=== PATIENT | female | born 1955 | race Caucasian/White ===

== ENCOUNTER 2024-04-14 13:27 | Emergency (ER) | payer OTHER ==
--- NOTE | 2024-04-14 14:08 | RAD REPORT ---
EXAM: CT PELVIS WITHOUT CONTRAST [facility] Bed Name: 15 COMPARISON: None TECHNIQUE: Multiple contiguous axial images were obtained and a CT of the pelvis with IV contrast. Sa gittal and coronal reformats were performed. One or more of the following dose reduction techniques were used: Automated exposure control, adjustment of the mA and/or kV according to patient size, and/ or iterative reconstruction. FINDINGS: No pelvic fractures are seen. No fracture of either proximal femur is seen. Mild degenerati ve change in both hips. Mild free fluid in the pelvis. Feeding tube noted.. Soft tissue swelling is seen right medial buttock region. Focal soft tissue hematoma may be present i n the region measuring 5 cm. IMPRESSION: No acute fracture seen.
--- NOTE | 2024-04-14 14:21 | ER ---
Nurse's Notes [facility] Name: Dunia Robles Age: 68 yrs Sex: Female : 1955 Arrival Date: 04/14/2024 Time: 13:27 Bed 15 Private MD: Diagnosis: Buttock Hematoma Presentation: 04/14 13:32 Chief complaint: EMS states: they were toned out to [facility] for a fall yesterday and kc6 today, pt reporting right hip pain upon palpation. Coronavirus screen: At this time, the client does not indicate any symptoms associated with coronavirus-19. Ebola Screen: No symptoms or risks identified at this time. Initial Sepsis Screen: Does the patient meet any 2 criteria? No. Patient's initial sepsis screen is negative. Does the patient have a suspected source of infection? No. Patient's initial sepsis screen is negative. Risk Assessment: Do you want to hurt yourself or someone else? Patient reports no desire to harm self or others. Onset of symptoms was April 14, 2024. 13:32 Method Of Arrival: EMS: [facility] 13:32 Acuity: SANTY 4 kc6 Historical: - Allergies: 13:33 No Known Allergies; kc6 - PMHx: 13:33 Chronic obstructive lung disease; Hypertensive disorder; Cerebrovascular accident; kc6 hyperlipidemia; Anemia; Gastroesophageal reflux disease; - Immunization history:: Adult Immunizations up to date. - Infectious Disease History:: Denies. - Social history:: Smoking status: Patient denies any tobacco usage or history of. Screenin:35 [facility] ED Fall Risk Assessment (Adult) History of falling in the last 3 months, kc including since admission Yes- fall prone (multiple falls) (3 pts) Confusion or Disorientation No (0 pts) Intoxicated or Sedated No (0 pts) Impaired Gait Yes (1 pt) Mobility Assist Device Used Yes (1 pt) Altered Elimination No (0 pt) Score/Fall Risk Level 3 or more points = High Risk Oriented to surroundings, Maintained a safe environment, Educated pt \T\ family on fall prevention, incl call for assistance when getting out of bed. Abuse screen: Denies threats or abuse. Denies injuries from another. Nutritional screening: No deficits noted. Tuberculosis screening: No symptoms or risk factors identified. Assessment: 13:36 General: Appears in no apparent distress. comfortable, well groomed, well developed, kc6 Behavior is calm, cooperative, appropriate for age. Pain: Complains of pain in right hip. Neuro: Level of Consciousness is awake, alert, obeys commands, Oriented to person, place, time, situation, Appropriate for age. Cardiovascular: Capillary refill < 3 seconds. Respiratory: Airway is patent Trachea midline Respiratory effort is even, unlabored, Respiratory pattern is regular, symmetrical. GI: No signs and/or symptoms were reported involving the gastrointestinal system. : No signs and/or symptoms were reported regarding the genitourinary system. EENT: No signs and/or symptoms were reported regarding the EENT system. Derm: No signs and/or symptoms reported regarding the dermatologic system. Skin is intact, is healthy with good turgor, Skin is pink, warm \T\ dry. Musculoskeletal: No signs and/or symptoms reported regarding the musculoskeletal system. Capillary refill < 3 seconds. 14:10 Reassessment: Patient appears in no apparent distress at this time. No changes from kc6 previously documented assessment. Patient and/or family updated on plan of care and expected duration. Pain level reassessed. Patient is alert, oriented x 3, equal unlabored respirations, skin warm/dry/pink. 14:25 Reassessment: nurse to nurse report given to [facility]. state they will arrange [facility] transport back to the facility with [facility] and call back with [facility]. Vital Signs: 13:32 BP 105 / 84; Pulse 65; Resp 16 S; Temp 97.3(O); Pulse Ox 100% on R/A; Weight 52.62 kg kc6 (M); ED Course: 13:30 Patient arrived in ED. kc6 13:33 Triage completed. kc6 13:33 Arm band placed on. kc6 13:34 Clark Rodriguez MD is Attending Physician. ec2 13:36 Patient has correct armband on for positive identification. Bed in low position. Call kc light in reach. Side rails up X2. Pulse ox on. NIBP on. Door closed. Noise minimized. Lights dimmed. Warm blanket given. Pillow given. 13:36 Patient maintains SpO2 saturation greater than 95% on room air. kc6 13:37 Shahrzad Camara RN is Primary Nurse. kc6 13:58 CT Pelvis wo Cont In Process Unspecified. EDMS 14:58 No provider procedures requiring assistance completed. Patient did not have IV access kc6 during this emergency room visit. Administered Medications: No medications were administered Medication: 14:58 VIS not applicable for this client. kc6 Outcome: 14:20 Discharge ordered by . ec2 14:58 Discharged to [facility]. kc6 14:58 Condition: good 14:58 Discharge instructions given to patient, EMS, Instructed on discharge instructions, follow up and referral plans. Demonstrated understanding of instructions, follow-up care, 14:58 Patient left the ED. kc6 Signatures: Dispatcher [employer] Shahrzad Carter RN RN kc6 Clark Rodriguez MD MD ec2
--- NOTE | 2024-04-14 14:21 | EDPHYS ---
Physician Documentation [facility] Name: Dunia Robles Age: 68 yrs Sex: Female : 1955 Arrival Date: 04/14/2024 Time: 13:27 Bed 15 Private MD: ED Physician Clark Rodriguez HPI: 04/14 13:36 This 68 yrs old Female presents to ER via EMS with complaints of Hip Pain, ec2 Fall Injury. 13:36 Patient arrives today after head sustaining a fall injury yesterday. No LOC, no head or ec2 neck pain, complaining of right hip pain. Had outpatient x-rays that showed no acute pathology.. Historical: - Allergies: 13:33 No Known Allergies; kc6 - PMHx: 13:33 Chronic obstructive lung disease; Hypertensive disorder; Cerebrovascular accident; kc6 hyperlipidemia; Anemia; Gastroesophageal reflux disease; - Immunization history:: Adult Immunizations up to date. - Infectious Disease History:: Denies. - Social history:: Smoking status: Patient denies any tobacco usage or history of. ROS: 13:36 Constitutional: as per hpi ec2 Exam: 13:36 Constitutional: GEN: NAD Head: atraumatic Eyes: EOMI Ears: External ears are ec2 normal. CV: regular rate LUNGS: no respiratory distress ABD: non-distended SKIN: no evidence of rashes MSK: Right hip with TTP, no deformities, intact distal neurovascular status noted. No C/T/L spine deformities appreciated. Vital Signs: 13:32 BP 105 / 84; Pulse 65; Resp 16 S; Temp 97.3(O); Pulse Ox 100% on R/A; Weight 52.62 kg kc6 (M); MDM: 13:36 Data reviewed: vital signs. ED course: Patient arrives today for evaluation of right ec2 hip pain. Examination remarkable for hip findings as above. Will obtain CT of the pelvis. Differential includes bony fx, contusion. . 14:20 ED course: CT imaging shows hematoma of the buttock region, no fracture. Will discharge ec2 home. Return precautions given. 14:20 Patient medically screened. ec2 04/14 13:35 Order name: CT Pelvis wo Cont; Complete Time: 14:19 ec2 Administered Medications: No medications were administered Disposition Summary: 04/14/24 14:20 Discharge Ordered Notes: Location: Home ec2 Condition: Stable ec2 Diagnosis - Buttock Hematoma ec2 Followup: ec2 - With: Private Physician - When: - Reason: Re-evaluation by your physician Discharge Instructions: - Discharge Summary Sheet ec2 - Hematoma, [id number] ec2 Forms: - Medication Reconciliation Form ec2 - Antibiotic Education ec2 - Prescription Opioid Use ec2 - Patient Portal Instructions ec2 - Leadership Thank You Letter ec2 Signatures: Dispatcher [employer] Shahrzad Carter RN RN kc6 Clark Rodriguez MD MD ec2
[2024-04-14 17:48] VITALS: BP 105/84; TEMP 97.3; O2SAT 100
== END 2024-04-14 14:58 | disposition home or self-care (01) ==
LOC: ER 13:27
DX: S30.0XXA Contusion of lower back and pelvis, initial encounter (principal)
CPT/HCPCS: 72192

== ENCOUNTER 2024-08-14 19:47 | Emergency (ER) | payer OTHER ==
--- OUTSIDE RECORDS SUMMARY | 2024-08-14 19:50 | XMS REPORT | Continuity of Care Document ---
Author Name Unknown Address [address] [facility] [address] [place], [place] [id number] [place] [address] thconnect Address [address] [facility] [address] [place] [address] Care Team Providers Care Undercover Agent Name Role Phone MASSIMO RODGERS Attending Clinician Unavailab bernardo FLORENTINO_ROLA_Jeff_J Attending Clinician Unavailable MASON NEFF Attending Clinician Unavailable MISHEL_ROLA_Jeff_J Admitting Clinician Unavailable Payers Payer Name Policy Type Policy Number Effective Date Expirati on Date Source [facility] MEDICAID [facility] [id number] 2021 00:00:00 2021 00:00:00 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 Dependence on Wheel Chair Problem Active 2-02 00:00: 00 [facility] Lives in senior living Lives in Longterm Problem Active 2-02 00:00: 00 [facility] Palliative care Palliative Care Problem Active 2-02 00:00: 00 [facility] At high risk for fall At High Risk for Fall Problem Active 2-02 00:00: 00 [facility] Vascular dementia Vascular Dementia Problem Active 1-18 00:00: 00 [facility] Epilepsy Epilepsy Problem Active 1-18 00:00: 00 [facility] Tobacco dependence caused by cigarettes Tobacco Dependence Caused by Cigarettes Problem Active 1-18 00:00: 00 [facility] Simple chronic bronchitis Simple Chronic Bronchitis Problem Active 2023-07 0-28 00:00: 00 [facility] Spastic hemiplegia of right dominant side Spastic Hemiplegia of Right Dominant Side Problem Active 8-23 00:00: 00 [facility] Seizure disorder Seizure Disorder Problem Active 8-15 00:00: 00 [facility] Mononeurop athy of upper limb Mononeurop athy of Upper Limb Problem Active 617 00:00: 00 [facility] Mild protein-ca pennie malnutriti on (weight for age 75-89 percent of standard) Mild Protein-ca pennie Malnutriti on (Weight for Age 75-89 Percent of Standard) Problem Active 617 00:00: 00 [facility] Contractur e of joint of right hand Contractur e of Joint of Right Hand Problem Active 523 00:00: 00 [facility] Gastroesop hageal reflux disease Gastroesop hageal Reflux Disease Problem Active 4-22 00:00: 00 [facility] Chronic kidney disease stage 2 Chronic Kidney Disease Stage 2 Problem Active 2-25 00:00: 00 [facility] Macrocytic anemia Macrocytic Anemia Problem Active 2022-07 2 00:00: 00 [facility] Hypertensi ve heart AND renal disease Hypertensi ve Heart and Renal Disease Problem Active 2022-07 2 00:00: 00 [facility] Seen in senior living Seen in Longterm Problem Active 2022-07 2- 00:00: 00 [facility] Osteoarthr itis Osteoarthr itis Problem Active 2022-07 2-06 00:00: 00 [facility] Secondary immune deficiency disorder Secondary Immune Deficiency Disorder Problem Active 2022-07 2-04 00:00: 00 [facility] Carotid artery stenosis Carotid Artery Stenosis Problem Active 2022-07 2-04 00:00: 00 [facility] Atheroscle rosis of aorta Atheroscle rosis of Aorta Problem Active 2022-07 2-04 00:00: 00 [facility] Peripheral vascular disease Peripheral Vascular Disease Problem Active 2022-07 2-04 00:00: 00 [facility] Nodule of lung Nodule of Lung Problem Active 2022-07 2-04 00:00: 00 [facility] Double incontinen ce Double Incontinen ce Problem Active 2022-07 2-04 00:00: 00 [facility] Hypercoagu lability state Hypercoagu lability State Problem Active 2022-07 00:00: 00 [facility] Cerebrovas cular disease Cerebrovas cular Disease Problem Active 2022-07 00:00: 00 [facility] 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 cular Disease Problem Active 2022-07 00:00: 00 [facility] 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 Dysphagia as a Late Effect of Cerebrovas cular Accident Problem Active 2022-07 00:00: 00 [facility] Chronic obstructiv e pulmonary disease Chronic Obstructiv e Pulmonary Disease Problem Active 2022-07 00:00: 00 [facility] Functional gait abnormalit y Functional Gait Abnormalit y Problem Active 2022-07 00:00: 00 [facility] Gastrostom y present Gastrostom y Present Problem Active 2022-07 00:00: 00 [facility] Need for personal care assistance Need for Personal Care Assistance Problem Active 2022-07 00:00: 00 [facility] Social History Smoking Status Start Date Stop Date Source Current Some Day Smoker [facility] Medications Ordered Medication Name Filled Medication Name Start Date Stop Date Current Medication? Ordering Clinician Indication Dosage Frequency Signature (SIG) Comments Components Source lisinopril 2.5 mg tablet Take 1 tablet every day by oral route. lisinopril 2.5 mg tablet Take 1 tablet every day by oral route. 01-01 00:00: 00 No 1 Q1D lisinopril 2.5 mg tablet Take 1 tablet every day by oral route. [facility] amlodipine 10 mg tablet Take 1 tablet every day by oral route. amlodipine 10 mg tablet Take 1 tablet every day by oral route. No 1 Q1D amlodipine 10 mg tablet Take 1 tablet every day by oral route. [facility] aspirin 81 mg tablet,scott yed release Take 1 tablet every day by oral route. aspirin 81 mg tablet,scott yed release Take 1 tablet every day by oral route. No 1 Q1D aspirin 81 mg tablet,del ayed release Take 1 tablet every day by oral route. [facility] atorvastati n 80 mg tablet Take 1 tablet every day by oral route. atorvastati n 80 mg tablet Take 1 tablet every day by oral route. No atorvastat in 80 mg tablet Take 1 tablet every day by oral route. [facility] budesonide 0.5 mg/2 mL suspension for nebulizatio n Inhale 2 mL twice a day by nebulizatio n route for 30 days. budesonide 0.5 mg/2 mL suspension for nebulizatio n Inhale 2 mL twice a day by nebulizatio n route for 30 days. No budesonide 0.5 mg/2 mL suspension for nebulizati on Inhale 2 mL twice a day by nebulizati on route for 30 days. [facility] Combivent Respimat 20 mcg-100 mcg/actuati on solution for inhalation Combivent Respimat 20 mcg-100 mcg/actuati on solution for inhalation No Combivent Respimat 20 mcg-100 mcg/actuat ion solution for inhalation [facility] ferrous sulfate 220 mg (44 mg iron)/5 mL oral elixir Take 7 mL every day by oral route. ferrous sulfate 220 mg (44 mg iron)/5 mL oral elixir Take 7 mL every day by oral route. No 7mL Q1D ferrous sulfate 220 mg (44 mg iron)/5 mL oral elixir Take 7 mL every day by oral route. [facility] ipratropium 0.5 mg-albutero l 3 mg (2.5 mg base)/3 mL nebulizatio n soln Inhale 3 mL 4 times a day by nebulizatio n route as needed. ipratropium 0.5 mg-albutero l 3 mg (2.5 mg base)/3 mL nebulizatio n soln Inhale 3 mL 4 times a day by nebulizatio n route as needed. No ipratropiu m 0.5 mg-albuter ol 3 mg (2.5 mg base)/3 mL nebulizati on soln Inhale 3 mL 4 times a day by nebulizati on route as needed. [facility] melatonin 3 mg tablet Take 1 tablet every day by oral route at bedtime. melatonin 3 mg tablet Take 1 tablet every day by oral route at bedtime. No 1 Q1D melatonin 3 mg tablet Take 1 tablet every day by oral route at bedtime. [facility] metoprolol tartrate 25 mg tablet Take 0.5 tablets twice a day by oral route. metoprolol tartrate 25 mg tablet Take 0.5 tablets twice a day by oral route. No .5 BID metoprolol tartrate 25 mg tablet Take 0.5 tablets twice a day by oral route. [facility] thiamine HCl (vitamin B1) 100 mg tablet Take 1 tablet every day by oral route. thiamine HCl (vitamin B1) 100 mg tablet Take 1 tablet every day by oral route. No 1 Q1D thiamine HCl (vitamin B1) 100 mg tablet Take 1 tablet every day by oral route. [facility] famotidine 20 mg tablet Take 1 tablet twice a day by oral route. famotidine 20 mg tablet Take 1 tablet twice a day by oral route. No 1 BID famotidine 20 mg tablet Take 1 tablet twice a day by oral route. [facility] baclofen 10 mg tablet Take 1 tablet 3 times a day by oral route. baclofen 10 mg tablet Take 1 tablet 3 times a day by oral route. No 1 TID baclofen 10 mg tablet Take 1 tablet 3 times a day by oral route. [facility] gabapentin 100 mg capsule Take 1 capsule 3 times a day by oral route for 14 days. gabapentin 100 mg capsule Take 1 capsule 3 times a day by oral route for 14 days. No 1capsul e(s) TID gabapentin 100 mg capsule Take 1 capsule 3 times a day by oral route for 14 days. [facility] atropine 1 % eye drops atropine 1 % eye drops No atropine 1 % eye drops [facility] levetiracet am 100 mg/mL oral solution Take 5 mL twice a day by oral route. levetiracet am 100 mg/mL oral solution Take 5 mL twice a day by oral route. No levetirace porter 100 mg/mL oral solution Take 5 mL twice a day by oral route. [facility] silver sulfadiazin e 1 % topical cream silver sulfadiazin e 1 % topical cream No silver sulfadiazi ne 1 % topical cream [facility] Immunizations Ordered Immunization Name Filled Immunization Name Date Status Comments Source influenza, unspecified formulation influenza, unspecified formulation Unknown Completed [facility] Pneumococcal conjugate PCV20, polysaccharide [id number] conjugate, adjuvant, PF Pneumococcal conjugate PCV20, polysaccharide [id number] conjugate, adjuvant, PF Unknown Completed [facility] Vital Signs Vital Name Observation Time Observation Value Comments S marthace Body Weight 2024-08-06 00:00:00 1985 [oz_av] [facility] Height 2024-08-06 00:00:00 62 [in_i] [facility] BP Systolic 2024-08-06 00:00:00 114 mm[Hg] [facility] BP Diastolic 2024-08-06 00:00:00 82 mm[Hg] [facility] BMI (Body Mass Index) 2024-08-06 00:00:00 22.7 kg/m2 [facility] Body Weight 2024-07-19 00:00:00 1985 [oz_av] [facility] BP Diastolic 2024-07-19 00:00:00 86 mm[Hg] [facility] Height 2024-07-19 00:00:00 62 [in_i] [facility] BMI (Body Mass Index) 2024-07-19 00:00:00 22.7 kg/m2 [facility] BP Systolic 2024-07-19 00:00:00 135 mm[Hg] [facility] Height 2024-07-13 00:00:00 62 [in_i] [facility] Body Weight 2024-07-13 00:00:00 1985 [oz_av] [facility] BP Diastolic 2024-07-13 00:00:00 82 mm[Hg] [facility] BP Systolic 2024-07-13 00:00:00 125 mm[Hg] [facility] BMI (Body Mass Index) 2024-07-13 00:00:00 22.7 kg/m2 [facility] Height 2024-06-25 00:00:00 62 [in_i] [facility] BP Systolic 2024-06-25 00:00:00 124 mm[Hg] [facility] Body Weight 2024-06-25 00:00:00 1920 [oz_av] [facility] BP Diastolic 2024-06-25 00:00:00 89 mm[Hg] [facility] BMI (Body Mass Index) 2024-06-25 00:00:00 21.9 kg/m2 [facility] BMI (Body Mass Index) 2024-05-21 00:00:00 21 kg/m2 [facility] BP Systolic 2024-05-21 00:00:00 102 mm[Hg] [facility] Body Weight 2024-05-21 00:00:00 1840 [oz_av] [facility] Height 2024-05-21 00:00:00 62 [in_i] [facility] BP Diastolic 2024-05-21 00:00:00 66 mm[Hg] [facility] Body Weight 2024-05-17 00:00:00 1863 [oz_av] [facility] Height 2024-05-17 00:00:00 62 [in_i] [facility] BP Systolic 2024-05-17 00:00:00 114 mm[Hg] [facility] BMI (Body Mass Index) 2024-05-17 00:00:00 21.3 kg/m2 [facility] BP Diastolic 2024-05-17 00:00:00 80 mm[Hg] [facility] BP Systolic 2024-04-30 00:00:00 101 mm[Hg] [facility] BMI (Body Mass Index) 2024-04-30 00:00:00 21.3 kg/m2 [facility] Height 2024-04-30 00:00:00 62 [in_i] [facility] BP Diastolic 2024-04-30 00:00:00 67 mm[Hg] [facility] Body Weight 2024-04-30 00:00:00 1863 [oz_av] [facility] BMI (Body Mass Index) 2024-04-18 00:00:00 21.3 kg/m2 [facility] BP Systolic 2024-04-18 00:00:00 125 mm[Hg] [facility] Body Weight 2024-04-18 00:00:00 1860 [oz_av] [facility] BP Diastolic 2024-04-18 00:00:00 74 mm[Hg] [facility] Height 2024-04-18 00:00:00 62 [in_i] [facility] BP Diastolic 2024-04-13 00:00:00 75 mm[Hg] [facility] Height 2024-04-13 00:00:00 62 [in_i] [facility] BMI (Body Mass Index) 2024-04-13 00:00:00 21.3 kg/m2 [facility] BP Systolic 2024-04-13 00:00:00 122 mm[Hg] [facility] Body Weight 2024-04-13 00:00:00 1860 [oz_av] [facility] Body Weight 2024-03-21 00:00:00 1784 [oz_av] [facility] BMI (Body Mass Index) 2024-03-21 00:00:00 20.4 kg/m2 [facility] BP Systolic 2024-03-21 00:00:00 112 mm[Hg] [facility] BP Diastolic 2024-03-21 00:00:00 74 mm[Hg] [facility] Height 2024-03-21 00:00:00 62 [in_i] [facility] BP Diastolic 2024-03-15 00:00:00 88 mm[Hg] [facility] Height 2024-03-15 00:00:00 62 [in_i] [facility] Body Weight 2024-03-15 00:00:00 1784 [oz_av] [facility] BMI (Body Mass Index) 2024-03-15 00:00:00 20.4 kg/m2 [facility] BP Systolic 2024-03-15 00:00:00 127 mm[Hg] [facility] Height 2024-03-02 00:00:00 62 [in_i] [facility] BP Systolic 2024-03-02 00:00:00 131 mm[Hg] [facility] BP Diastolic 2024-03-02 00:00:00 74 mm[Hg] [facility] BMI (Body Mass Index) 2024-03-02 00:00:00 20.5 kg/m2 [facility] Body Weight 2024-03-02 00:00:00 1794 [oz_av] [facility] Body Weight 2024-02-24 00:00:00 1794 [oz_av] [facility] BP Systolic 2024-02-24 00:00:00 131 mm[Hg] [facility] Height 2024-02-24 00:00:00 62 [in_i] [facility] BP Diastolic 2024-02-24 00:00:00 74 mm[Hg] [facility] BMI (Body Mass Index) 2024-02-24 00:00:00 20.5 kg/m2 [facility] BP Diastolic 2024-02-15 00:00:00 75 mm[Hg] [facility] BMI (Body Mass Index) 2024-02-15 00:00:00 20.6 kg/m2 [facility] Height 2024-02-15 00:00:00 62 [in_i] [facility] BP Systolic 2024-02-15 00:00:00 120 mm[Hg] [facility] Body Weight 2024-02-15 00:00:00 1798 [oz_av] [facility] Height 2024-01-30 00:00:00 62 [in_i] [facility] BMI (Body Mass Index) 2024-01-30 00:00:00 20.6 kg/m2 [facility] BP Systolic 2024-01-30 00:00:00 121 mm[Hg] [facility] BP Diastolic 2024-01-30 00:00:00 60 mm[Hg] [facility] Body Weight 2024-01-30 00:00:00 1798 [oz_av] [facility] BP Diastolic 2024-01-19 00:00:00 89 mm[Hg] [facility] Body Weight 2024-01-19 00:00:00 1824 [oz_av] [facility] BMI (Body Mass Index) 2024-01-19 00:00:00 20.9 kg/m2 [facility] Height 2024-01-19 00:00:00 62 [in_i] [facility] BP Systolic 2024-01-19 00:00:00 140 mm[Hg] [facility] BP Diastolic 2024-01-16 00:00:00 89 mm[Hg] [facility] Height 2024-01-16 00:00:00 62 [in_i] [facility] BMI (Body Mass Index) 2024-01-16 00:00:00 20.9 kg/m2 [facility] Body Weight 2024-01-16 00:00:00 1824 [oz_av] [facility] BP Systolic 2024-01-16 00:00:00 134 mm[Hg] [facility] BMI (Body Mass Index) 2024-01-02 00:00:00 20.5 kg/m2 [facility] BP Diastolic 2024-01-02 00:00:00 75 mm[Hg] [facility] Body Weight 2024-01-02 00:00:00 1796 [oz_av] [facility] BP Systolic 2024-01-02 00:00:00 153 mm[Hg] [facility] Height 2024-01-02 00:00:00 62 [in_i] [facility] BMI (Body Mass Index) 2023-12-26 00:00:00 19.9 kg/m2 [facility] BP Systolic 2023-12-26 00:00:00 136 mm[Hg] [facility] BP Diastolic 2023-12-26 00:00:00 82 mm[Hg] [facility] Body Weight 2023-12-26 00:00:00 1744 [oz_av] [facility] Height 2023-12-26 00:00:00 62 [in_i] [facility] Height 2023-12-07 00:00:00 62 [in_i] [facility] BP Diastolic 2023-12-07 00:00:00 62 mm[Hg] [facility] Body Weight 2023-12-07 00:00:00 1744 [oz_av] [facility] BMI (Body Mass Index) 2023-12-07 00:00:00 19.9 kg/m2 [facility] BP Systolic 2023-12-07 00:00:00 115 mm[Hg] [facility] Height 2023 00:00:00 62 [in_i] [facility] BMI (Body Mass Index) 2023 00:00:00 19.6 kg/m2 [facility] Body Weight 2023 00:00:00 1712 [oz_av] [facility] BP Systolic 2023 00:00:00 101 mm[Hg] [facility] BP Diastolic 2023 00:00:00 60 mm[Hg] [facility] BP Systolic 2023-11-24 00:00:00 157 mm[Hg] [facility] Height 2023-11-24 00:00:00 62 [in_i] [facility] BMI (Body Mass Index) 2023-11-24 00:00:00 19.6 kg/m2 [facility] Body Weight 2023-11-24 00:00:00 1712 [oz_av] [facility] BP Diastolic 2023-11-24 00:00:00 91 mm[Hg] [facility] BP Systolic 2023-11-07 00:00:00 118 mm[Hg] [facility] Body Weight 2023-11-07 00:00:00 1712 [oz_av] [facility] BP Diastolic 2023-11-07 00:00:00 81 mm[Hg] [facility] BMI (Body Mass Index) 2023-11-07 00:00:00 19.6 kg/m2 [facility] Height 2023-11-07 00:00:00 62 [in_i] [facility] Body Weight 2023-10-28 00:00:00 1592 [oz_av] [facility] BMI (Body Mass Index) 2023-10-28 00:00:00 18.2 kg/m2 [facility] BP Systolic 2023-10-28 00:00:00 124 mm[Hg] [facility] Height 2023-10-28 00:00:00 62 [in_i] [facility] BP Diastolic 2023-10-28 00:00:00 76 mm[Hg] [facility] BP Diastolic 2023-10-24 00:00:00 70 mm[Hg] [facility] Body Weight 2023-10-24 00:00:00 1592 [oz_av] [facility] BMI (Body Mass Index) 2023-10-24 00:00:00 18.2 kg/m2 [facility] Height 2023-10-24 00:00:00 62 [in_i] [facility] BP Systolic 2023-10-24 00:00:00 130 mm[Hg] [facility] Body Weight 2023-10-21 00:00:00 1592 [oz_av] [facility] BMI (Body Mass Index) 2023-10-21 00:00:00 18.2 kg/m2 [facility] Height 2023-10-21 00:00:00 62 [in_i] [facility] BP Diastolic 2023-10-21 00:00:00 71 mm[Hg] [facility] BP Systolic 2023-10-21 00:00:00 137 mm[Hg] [facility] Body Weight 2023-10-18 00:00:00 1592 [oz_av] [facility] BMI (Body Mass Index) 2023-10-18 00:00:00 18.2 kg/m2 [facility] Height 2023-10-18 00:00:00 62 [in_i] [facility] BP Systolic 2023-10-18 00:00:00 153 mm[Hg] [facility] BP Diastolic 2023-10-18 00:00:00 95 mm[Hg] [facility] Body Weight 2023-09-29 00:00:00 1634 [oz_av] [facility] BMI (Body Mass Index) 2023-09-29 00:00:00 18.7 kg/m2 [facility] Height 2023-09-29 00:00:00 62 [in_i] [facility] BP Systolic 2023-09-29 00:00:00 129 mm[Hg] [facility] BP Diastolic 2023-09-29 00:00:00 87 mm[Hg] [facility] BMI (Body Mass Index) 2023-09-21 00:00:00 18.7 kg/m2 [facility] BP Diastolic 2023-09-21 00:00:00 76 mm[Hg] [facility] Height 2023-09-21 00:00:00 62 [in_i] [facility] Body Weight 2023-09-21 00:00:00 1634 [oz_av] [facility] BP Systolic 2023-09-21 00:00:00 123 mm[Hg] [facility] Height 2023-08-30 00:00:00 62 [in_i] [facility] BMI (Body Mass Index) 2023-08-30 00:00:00 18 kg/m2 [facility] BP Diastolic 2023-08-30 00:00:00 82 mm[Hg] [facility] BP Systolic 2023-08-30 00:00:00 128 mm[Hg] [facility] Body Weight 2023-08-30 00:00:00 1572 [oz_av] [facility] BP Diastolic 2023-08-23 00:00:00 90 mm[Hg] [facility] Height 2023-08-23 00:00:00 62 [in_i] [facility] Body Weight 2023-08-23 00:00:00 1576 [oz_av] [facility] BMI (Body Mass Index) 2023-08-23 00:00:00 18 kg/m2 [facility] BP Systolic 2023-08-23 00:00:00 144 mm[Hg] [facility] BMI (Body Mass Index) 2023-08-02 00:00:00 18.1 kg/m2 [facility] BP Systolic 2023-08-02 00:00:00 131 mm[Hg] [facility] Body Weight 2023-08-02 00:00:00 1584 [oz_av] [facility] Height 2023-08-02 00:00:00 62 [in_i] [facility] BP Diastolic 2023-08-02 00:00:00 84 mm[Hg] [facility] BP Systolic 2023-07-29 00:00:00 124 mm[Hg] [facility] BMI (Body Mass Index) 2023-07-29 00:00:00 18.1 kg/m2 [facility] Height 2023-07-29 00:00:00 62 [in_i] [facility] BP Diastolic 2023-07-29 00:00:00 86 mm[Hg] [facility] Body Weight 2023-07-29 00:00:00 1584 [oz_av] [facility] Procedures Procedure Date / Time Performed Performing [facility] Source [facility] [place], modified [facility] Encounters Start Date/Time End Date/Time Encounter Type Admission Type Attending Clinicians Care Facility Care Department Encounter ID Source 2024-08-06 00:00:00 2024-08-06 00:00:00 SALAZAR Juarez: [address] [place] [id number] , Ph. [facility] [id number] [facility] 2024-07-19 00:00:00 2024-07-19 00:00:00 Alvarado Pike MD: [address] [place] [phone] , Ph. [facility] [id number] [facility] 2024-07-13 00:00:00 2024-07-13 00:00:00 SALAZAR Juarez: [address] [place] [phone] , Ph. [facility] [id number] [facility] 2024-06-25 00:00:00 2024-06-25 00:00:00 SALAZAR Juarez: [address] [place] [phone] , Ph. [facility] [id number] [facility] 2024-05-21 00:00:00 2024-05-21 00:00:00 SALAZAR Juarez: [address] [place] [phone] , Ph. [facility] [id number] [facility] 2024-05-17 00:00:00 2024-05-17 00:00:00 Alvarado Pike MD: [address] [place] [phone] , Ph. [facility] [id number] [facility] 2024-04-30 00:00:00 2024-04-30 00:00:00 SALAZAR Juarez: [address] [place] [phone] , Ph. [facility] [id number] [facility] 2024-04-18 00:00:00 2024-04-18 00:00:00 SALAZAR Juarez: [address] [place] [id number] , Ph. [facility] [id number] [facility] 2024-04-13 00:00:00 2024-04-13 00:00:00 SALAZAR Juarez: [address] [place] [phone] , Ph. [facility] [id number] [facility] 2024-03-21 00:00:00 2024-03-21 00:00:00 Yuly Aguilar PA: [address] [place] [phone] , Ph. [facility] [id number] [facility] 2024-03-15 00:00:00 2024-03-15 00:00:00 Alvarado Pike MD: [address] [place] [phone] , Ph. [facility] [id number] [facility] 2024-03-02 00:00:00 2024-03-02 00:00:00 Yuly Aguilar PA: [address] [place] [phone] , Ph. [facility] [id number] [facility] 2024-02-24 00:00:00 2024-02-24 00:00:00 SALAZAR Juarez: [address] [place] [phone] , Ph. [facility] [id number] [facility] 2024-02-15 00:00:00 2024-02-15 00:00:00 SALAZAR Juarez: [address] [place] [phone] , Ph. [facility] [id number] [facility] 2024-01-30 00:00:00 2024-01-30 00:00:00 Yuly Aguilar PA: [address] [place] [phone] , Ph. [facility] [facility] [id number] [facility] 2024-01-19 00:00:00 2024-01-19 00:00:00 Alvarado Pike MD: [address] [place], [place] [phone] , Ph. [facility] - [facility] [id number] [facility] 2024-01-16 00:00:00 2024-01-16 00:00:00 Yuly Aguilar PA: [address] [place] [phone] , Ph. [facility] [id number] [facility] 2024-01-02 00:00:00 2024-01-02 00:00:00 SALAZAR Juarez: [address] [place] [phone] , Ph. [facility] - [facility] [id number] [facility] 2023-12-26 00:00:00 2023-12-26 00:00:00 Yuly Aguilar PA: [address] [place] [phone] , Ph. [facility] - [facility] [id number] [facility] 2023-12-07 00:00:00 2023-12-07 00:00:00 SALAZAR Juarez: [address] [place] [phone] , Ph. [facility] - [facility] [id number] [facility] 2023 00:00:00 2023 00:00:00 SALAZAR Juarez: [address] [place] [phone] , Ph. [facility] - [facility] [id number] [facility] 2023-11-24 00:00:00 2023-11-24 00:00:00 Alvarado Pike MD: [address] [place] [phone] , Ph. [facility] - [facility] [id number] [facility] 2023-11-07 00:00:00 2023-11-07 00:00:00 Yuly Aguilar PA: [address] [place] [phone] , Ph. [phone] [place] [address] - [facility] [id number] [facility] 2023-10-28 00:00:00 2023-10-28 00:00:00 SALAZAR Juarez: [address] [place] [phone] , Ph. [facility] [id number] [facility] 2023-10-24 00:00:00 2023-10-24 00:00:00 Yuly Aguilar PA: [address] [place] [phone] , Ph. [facility] - [facility] [id number] [facility] 2023-10-21 00:00:00 2023-10-21 00:00:00 Yuly Aguilar PA: [address] [place] [phone] , Ph. [facility] - [facility] [id number] [facility] 2023-10-18 00:00:00 2023-10-18 00:00:00 SALAZAR Juarez: [address] [place] [phone] , Ph. [facility] - [facility] [id number] [facility] 2023-09-29 00:00:00 2023-09-29 00:00:00 Alvarado Pike MD: [address] [place] [phone] , Ph. [facility] - [facility] [id number] [facility] 2023-09-21 00:00:00 2023-09-21 00:00:00 Yuly Aguilar PA: [address] [place] [phone] , Ph. [phone] [place] [address] - [facility] [id number] [facility] 2023-08-30 00:00:00 2023-08-30 00:00:00 SALAZAR Juarez: [address] [place] [phone] , Ph. [facility] - [facility] [id number] [facility] 2023-08-23 00:00:00 2023-08-23 00:00:00 Yuly Aguilar PA: [address] [place] [phone] , Ph. [facility] - [facility] [id number] [facility] 2023-08-23 00:00:00 2023-08-23 00:00:00 Yuly Aguilar PA: [address] [place] [phone] , Ph. [facility] - [facility] [id number] [facility] 2023-08-02 00:00:00 2023-08-02 00:00:00 SALAZAR Juarez: [address] [place] [phone] , Ph. [facility] [id number] [facility] 2023-08-02 00:00:00 2023-08-02 00:00:00 Yuly Aguilar PA: [address] [place], [place] [phone] , Ph. [facility] [id number] [facility] 2023-07-29 00:00:00 2023-07-29 00:00:00 SALAZAR Juarez: [address] [place], [place] [phone] , Ph. [facility] [id number] [facility] 2023-07-28 00:00:00 2023-07-28 00:00:00 Alvarado Pike MD: [address] [place] [phone] , Ph. [facility] [id number] [facility] 2023-07-22 00:00:00 2023-07-22 00:00:00 Yuly Aguilar PA: [address] [place] [phone] , Ph. [facility] [id number] [facility] 2023-07-08 15:00:00 2023-07-08 15:00:00 Outpatient MASSIMO RODGERS [facility] [id number] [facility] 2023-07-01 00:00:00 2023-07-01 00:00:00 SALAZAR Juarez: [address] [place] [phone] , Ph. [facility] - [facility] [id number] [facility] 2023-06-25 00:00:00 2023-06-25 00:00:00 Outpatient [facility]J PRIV PRIV [id number] [facility] 2023-05-20 00:00:00 2023-05-20 00:00:00 Outpatient [facility]_J PRIV PRIV [id number] [facility] 2023-05-20 00:00:00 2023-05-20 00:00:00 Outpatient [facility]_Tod d_J PRIV PRIV [id number] [facility] 2023-05-20 00:00:00 2023-05-20 00:00:00 Outpatient [facility]_Tod d_J PRIV PRIV [id number] [facility] 2023-05-20 00:00:00 2023-05-20 00:00:00 Outpatient [facility]Tod [facility]_J PRIV PRIV [id number] [facility] 2023-05-20 00:00:00 2023-05-20 00:00:00 Outpatient [facility]_Tod d_J PRIV PRIV [id number] [facility] 2023-05-20 00:00:00 2023-05-20 00:00:00 Outpatient [facility]Tod d_J PRIV PRIV [id number] [facility] 2023-05-20 00:00:00 2023-05-20 00:00:00 Outpatient [facility]Tod d_J PRIV PRIV [id number] [facility] 2023-05-20 00:00:00 2023-05-20 00:00:00 Outpatient [facility]_Tod d_J PRIV PRIV [id number] [facility] 2023-05-20 00:00:00 2023-05-20 00:00:00 Outpatient [facility]_Tod d_J PRIV PRIV [id number] [facility] 2023-05-19 00:00:00 2023-05-19 00:00:00 Outpatient [facility]Tod [facility]_J [facility] PRIV [id number] [facility] 2023-05-16 11:00:00 2023-05-16 11:00:00 Outpatient MASON NEFF [facility] [id number] [facility]
[2024-08-14 20:07] LABS: Absolute Basophils 0.1 K/uL (0-0.5); Absolute Eosinophils 0.2 K/uL (0-0.5); Absolute Lymphocytes (CBC) 1.5 K/uL (0.7-4.9); Absolute Monocytes 0.7 K/uL (0.1-1.3); Absolute Neutrophil 6.6 K/uL (1.8-8.0); Basophils % 0.7 % (0-1.3); Eosinophils % 2.2 % (0-4.4); Hematocrit 33.5 % (36.0-45.0); Hemoglobin 11.5 g/dL (12.0-15.0); Lymphocytes % 16.2 % (15.3-44.8); MCH 31.6 pg (27.0-35.0); MCHC 34.3 g/dL (32.0-36.0); MCV 92.1 fL (80-100); MPV 7.6 fL (7.6-11.3); Monocytes % 8.2 % (3.3-12.3); Neutrophils % 72.7 % (41.7-73.7); Platelets 305 thou/uL (152-406); RBC Red Blood Cell Count 3.64 M/uL (3.86-4.86); Red Cell Distribution Width 12.7 % (12.1-15.2)
[2024-08-14 20:19] LABS: PT Prothrombin Time 11.2 SECONDS (9.4-12.5); PTT, Activated Partial Thromb 30.5 SECONDS (24.3-36.9); Protime INR 1.07
[2024-08-14 20:25] LABS: Albumin 3.4 g/dL (3.4-5.0); Albumin/Globulin Ratio 0.8 (1.1-1.8); Anion Gap 15.8 mEq/L (5.0-15.0); Bilirubin Total 0.6 mg/dL (0.2-1.0); Globulin 4.2 g/dL (2.3-3.5); Potassium 3.8 mEq/L (3.5-5.1); Protein, Total 7.6 g/dL (6.4-8.2)
[2024-08-14] MEDS ORDERED: VANCOMYCIN 1 GM/VIAL ONE (20:35)
[2024-08-14] MEDS ORDERED: NA CHLORIDE 0.9% 1,000 ML ONE ×2 (20:36→21:08)
[2024-08-14] MEDS ORDERED: LEVETIRACETAM 500 MG/5 ML VIAL IV ONE ×2 (20:36→23:07)
[2024-08-14] MEDS ORDERED: NA CHLORIDE 0.9% 250 ML ONE (20:36)
[2024-08-14] MEDS ORDERED: NA CHLORIDE 0.9% 100 ML ONE ×2 (20:36→23:07)
--- NOTE | 2024-08-14 20:57 | RAD REPORT ---
EXAM: CT brain without contrast HISTORY: seizures, fall COMPARISON: MRA brain TECHNIQUE: Multiple contiguous axial images were obtained and a CT of the brain without contrast. Sag ittal and coronal reformats were performed. FINDINGS: No evidence of hydrocephalus, intracranial hemorrhage, or extra-axial fluid collection. Encephalomalacia involving the high left parietal cortex, extending towards the sylvian fissure, sugg esting sequelae of remote ischemia. Foci of hypoattenuation involving the left subinsular region, and right posterior limb of internal capsule, also suggest sequelae of remote ischemia. Left posterio r centrum semiovale bowel hypoattenuation extending along the internal capsule with mild left cerebral peduncle atrophy suggesting wallerian degeneration. The brain is normal in morphology. The calvarium is intact. Mild left frontal scalp swelling. The visualized paranasal sinuses and masto id air cells are essentially clear. IMPRESSION: No evidence of acute intracranial abnormality. Encephalomalacia in the left parietal lobe, left subinsular region, and right posterior limb of inter nal capsule, suggesting sequelae of remote ischemia. Mild left frontal scalp swelling. EXAM: CT of the cervical spine without contrast HISTORY: seizures, fall COMPARISON: None TECHNIQUE: Multiple contiguous axial images were obtained in a CT of the cervical spine without contr ast. Sagittal and coronal reformats were performed. FINDINGS: The vertebral bodies demonstrate normal height and alignment. No evidence of acute fracture or subluxation.. No degenerative changes are present. No prevertebral soft tissue swelling is seen. The posterior facets are well aligned. Normal alignment of the skull base with the cervical spine is seen. The lung apices are unremarkable. IMPRESSION: No evidence of acute osseous abnormality of the cervical spine.
--- NOTE | 2024-08-14 21:22 | RAD REPORT ---
EXAM: CT CHEST, ABDOMEN AND PELVIS WITHOUT CONTRAST CLINICAL INDICATION: Female, 68 years old. [facility] MAIN fall, seizures Bed Name: 6 TECHNIQUE: CT chest, abdomen and pelvis was performed, without IV contrast, as per department protoco l. Axial, sagittal and coronal reconstructions were obtained. One or more of the following dose reduction techniques were used: Automated exposure control, adjustment of the mA and/or kV according to the patient size, and/or iterative reconstruction. Unless otherwise specified, incidental findings do not require dedicated imaging follow-up. COMPARISON: No prior exam. FINDINGS: The lack of intravenous contrast limits the sensitivity of this exam for evaluation of solid visceral organs, vascular structures, and retroperitoneum. Motion artifact somewhat limits evaluation. Chest: LOWER NECK/CHEST WALL: Visualized thyroid gland and soft tissues are normal. LUNGS AND AIRWAYS: Airways are clear. No evidence of airspace or interstitial process. No nodules. PLEURA: No pleural effusion. No pneumothorax. Hemidiaphragms are normally positioned. MEDIASTINUM AND LYMPH NODES: No mediastinal mass or fluid collection. Normal size mediastinal, hilar, and axillary lymph nodes. THORACIC AORTA: Normal caliber and configuration. PULMONARY ARTERIES: Normal caliber. HEART: Unremarkable. Abdomen/Pelvis LIVER: Normal in size and contour. No focal lesion. GALLBLADDER/BILE DUCTS: No biliary ductal dilatation. PANCREAS: No mass, ductal dilation, or alivia-pancreatic fluid. SPLEEN: Normal size. No focal lesion. ADRENALS: Normal; no mass. KIDNEYS AND URETERS: Normal size and contour. No hydronephrosis. GASTROINTESTINAL TRACT: Stomach is non-dilated. Small bowel has normal course and caliber. No colonic wall thickening or pericolonic inflammatory changes. Appendix is not discretely visualized. Moderate stool burden throughout the distal colon. PERITONEUM: No free fluid. LYMPH NODES: No lymphadenopathy. ABDOMINAL AORTA AND OTHER VESSELS: Normal caliber aorta and IVC. URINARY BLADDER: Normal contour. REPRODUCTIVE ORGANS: No pathologic process. MUSCULOSKELETAL: No acute or suspicious osseous abnormality. ADDITIONAL FINDINGS: Partial sigmoid colon wall herniation along the lower aspect of the right sciati c foramen, series 401 image 97. IMPRESSION: No acute or significant abnormalities in the chest, abdomen, or pelvis. Incidental findings as above.
--- NOTE | 2024-08-14 21:48 | RAD REPORT ---
EXAMINATION: ONE VIEW CHEST XR CLINICAL INDICATION: Female, 68 years old.,FEVER TECHNIQUE: Frontal chest projection is submitted. Examination is limited by patient positioning and t echnique. COMPARISON: No prior exam. FINDINGS: Patient rotation limits evaluation. The lungs are well inflated and clear. No pneumothorax or sizabl e effusion. The heart is normal in size. Mediastinal contours are unremarkable except for tortuosity of the thoracic aorta. IMPRESSION: No acute intrathoracic abnormalities.
--- NOTE | 2024-08-14 21:48 | RAD REPORT ---
EXAMINATION: XR RIGHT HUMERUS CLINICAL INDICATION: Female, 68 years old. SWELLING RIGHT TECHNIQUE:Two view radiograph of the right humerus were obtained. COMPARISON: No prior exam. FINDINGS: No acute fracture. Anteroinferior dislocation of the shoulder. Contracted appearance of the elbow joint limits evaluation. No focal osseous lesion of the humeral shaft. Mild soft tissue swelling about the shoulder. IMPRESSION: Anteroinferior dislocation of the shoulder.
--- NOTE | 2024-08-14 21:49 | RAD REPORT ---
Exam: XR Forearm Right Clinical history: SWELLING Technique: Radiographic views of the right forearm. Findings: No fracture or dislocation seen. Flexion and the wrists limits evaluation
--- NOTE | 2024-08-14 21:50 | RAD REPORT ---
EXAMINATION: UPPER EXTREMITY VENOUS UNILATE CLINICAL INDICATION: Female, 68 years old. [facility] MAIN right arm Bed Name: 6 TECHNIQUE: Complete venous duplex sonography of the right upper extremity was performed. The examinat ion included compression for vein patency, color Doppler imaging and flow augmentation in response to distal compression of the internal jugular, brachiocephalic, subclavian, axillary, brachial, radia l, ulnar, cephalic and basilic veins. COMPARISON: No prior exam. FINDINGS: Duplex sonography testing of the veins of the right upper extremity is completed. Color flow imaging shows all veins to be compressible with appropriate color filling, with exception of right medial veins, along which compressibility could not be evaluated due to patient posturing. Pulsatile and pha sic flow is present within the upper extremity deep and superficial veins examined. IMPRESSION: There is no deep vein or superficial vein thrombosis.
--- NOTE | 2024-08-14 21:51 | RAD REPORT ---
EXAMINATION: Upper Ext Artery Uni Braxton CLINICAL INDICATION: Female, 68 years old. [facility] MAIN right arm SWELLING Bed Name: 6 TECHNIQUE: Arterial duplex ultrasound was performed of the Right upper extremity with real-time, colo r-flow, and spectral wave Doppler evaluation. COMPARISON: No prior exam. FINDINGS: Mild atherosclerotic plaque throughout the evaluated arterial system. Triphasic waveforms are seen t hroughout the evaluated Right upper extremity arterial system, to the level of the pulmonary artery. Radial artery could not be evaluated due to limited patient mobility. No other suspicious fin dings. IMPRESSION: No evidence of significant peripheral vascular disease of the evaluated vessels.
--- NOTE | 2024-08-14 22:26 | ER ---
Nurse's Notes [facility] Name: Dunia Robles Age: 68 yrs Sex: Female : 1955 Arrival Date: 08/14/2024 Time: 19:47 Bed 6 Private MD: Diagnosis: Epilepsy, unspecified, not intractable, with status epilepticus Presentation: 08/14 19:52 Chief complaint: EMS states: unwitnessed fall from chair, 3 witnessed seizures at the [facility], 1 witnessed seizure en route. Coronavirus screen: Client denies travel out of the [place] in the last 14 days. Client presents with at least one sign or symptom that may indicate coronavirus-19. At this time, the client does not indicate any symptoms associated with coronavirus-19. Ebola Screen: Patient negative for fever greater than or equal to 101.5 degrees Fahrenheit, and additional compatible Ebola Virus Disease symptoms Patient denies exposure to infectious person. Patient denies travel to an Ebola-affected area in the 21 days before illness onset. No symptoms or risks identified at this time. Risk Assessment: Do you want to hurt yourself or someone else? Patient reports no desire to harm self or others. Onset of symptoms was August 14, 2024. Care prior to arrival: Medication(s) given: 2 mg Ativan. Care prior to arrival: Glucose check: 122. Activity prior to arrival: seizure. Mechanism of Injury: Fall out of chair. Transition of care: patient was received from another setting of care (long-term care facility), [facility]. 19:52 Method Of Arrival: EMS: [facility] vc1 19:52 Acuity: SANTY 2 vc1 19:52 Initial Sepsis Screen: Does the patient meet any 2 criteria? No. Patient's initial vc1 sepsis screen is negative. Does the patient have a suspected source of infection? No. Patient's initial sepsis screen is negative. Triage Assessment: 20:08 General: Appears distressed, slender, Behavior is unresponsive. Pain: Unable to use vc1 pain scale. Patient is unresponsive. EENT: No deficits noted. No signs and/or symptoms were reported regarding the EENT system. Neuro: Level of Consciousness is post ictal, Oriented to none. 20:10 Cardiovascular: Heart tones S1 S2 present Capillary refill < 3 seconds Patient's skin vc1 is warm and dry. Rhythm is sinus tachycardia. Respiratory: Airway is patent Respiratory effort is even, unlabored, Respiratory pattern is regular, symmetrical. GI: Abdomen is flat, PEG tube in place, clamped. : No deficits noted. No signs and/or symptoms were reported regarding the genitourinary system. Derm: Skin is intact, is healthy with good turgor, Skin is dry, Skin is normal, Skin temperature is hot. Musculoskeletal: Circulation, motion, and sensation intact. Range of motion: limited in left shoulder, left hip, right shoulder and right elbow. Historical: - Allergies: 19:56 No Known Allergies; vc1 - PMHx: 19:56 Cerebrovascular accident; Chronic obstructive lung disease; Gastroesophageal reflux vc1 disease; Hyperlipidemia; Anemia; Hypertensive disorder; Hemiplegia/Hemiparesis (Hypertensive disorder); Cellulitis; Insomnia; Dysphagia; Quadraplegia; - PSHx: 19:56 PEG Tube; vc1 - Immunization history:: Adult Immunizations up to date. - Infectious Disease History:: Denies. - Social history:: Smoking status: unknown. - Unable to obtain history due to: altered mental status. Screenin:00 [facility] ED Fall Risk Assessment (Adult) History of falling in the last 3 months, vc1 including since admission Yes- fall prone (multiple falls) (3 pts) Confusion or Disorientation Yes (5 pts) Intoxicated or Sedated Yes (3 pts) Impaired Gait Yes (1 pt) Mobility Assist Device Used Yes (1 pt) Altered Elimination Yes (1 pt) Score/Fall Risk Level 3 or more points = High Risk Oriented to surroundings, Maintained a safe environment, Educated pt \\T\\ family on fall prevention, incl call for assistance when getting out of bed, Assessed \\T\\ reinforced patient's understanding of fall precautions, Provided non-skid footwear, Hourly rounding (assess needs \\T\\ fall precautionary measures) done, Apply high fall risk patient identification: yellow non skid footwear/ fall signage, Remained w/in arm's length of patient and in sight while toileting. Abuse screen: Denies threats or abuse. Nutritional screening: No deficits noted. Tuberculosis screening: No symptoms or risk factors identified. Assessment: 20:48 General: See triage assessment. vc1 20:49 Reassessment: Patient appears in no apparent distress at this time. No changes from vc1 previously documented assessment. Patient and/or family updated on plan of care and expected duration. Pain level reassessed. 22:21 Reassessment: Patient appears in no apparent distress at this time. No changes from vc1 previously documented assessment. Patient and/or family updated on plan of care and expected duration. Pain level reassessed. 08/15 00:21 Reassessment: Patient appears in no apparent distress at this time. No changes from vc1 previously documented assessment. Patient and/or family updated on plan of care and expected duration. Pain level reassessed. Neuro: Level of Consciousness is obeys commands. 00:22 General: attempted to call report, asked to call back in 15 minutes receiving nurse is [facility] busy at the moment. 00:38 Reassessment: attempted to call report to receiving nurse, was told "that nurse is [facility] still busy" Informed them transportation will be here in 10 minutes. Gave number for nurse to call back for report. 00:40 Cardiovascular: JVD is present bilaterally. vc1 Vital Signs: 08/14 19:52 Temp 99.5(R); vc1 20:02 BP 147 / 90; Pulse 128; Resp 25; Pulse Ox 93% ; vc1 20:08 Weight 55.34 kg; vc1 20:49 BP 151 / 122; Pulse 137; Resp 19; Pulse Ox 97% on 2 lpm NC; vc1 21:25 BP 168 / 118; Pulse 108; ec2 21:45 BP 163 / 102; Pulse 110; Resp 17; Pulse Ox 97% on 2 lpm NC; vc1 22:45 BP 130 / 96; Pulse 102; Resp 16; Pulse Ox 97% ; vc1 23:45 BP 171 / 98; Pulse 98; Resp 15; Pulse Ox 100% ; vc1 08/15 00:24 BP 123 / 80; Pulse 91; ec2 01:26 BP 116 / 78; Pulse 89; Resp 14; Pulse Ox 91% on R/A; vc1 ED Course: 08/14 19:49 Patient arrived in ED. rn 19:51 Ryan Bryant MD is Attending Physician. rn 19:55 First set of blood cultures drawn by me. vk 19:55 Inserted saline lock: 22 gauge in right forearm, using aseptic technique. br2 19:56 Triage completed. vc1 20:00 Arm band placed on left wrist. vc1 20:00 Provided Education on: seizure precautions. vc1 20:01 Patient has correct armband on for positive identification. Placed in gown. Bed in low vc1 position. Side rails up X2. Pulse ox on. NIBP on. 20:02 Attending Physician role handed off by Ryan Bryant MD ec2 20:02 Clark Rodriguez MD is Attending Physician. ec2 20:26 Head C Spine Mpr Wo Con In Process Unspecified. EDMS 20:26 Chest Abd Pelvis Wo Con In Process Unspecified. EDMS 20:42 Inserted saline lock: 20 gauge in right forearm, using aseptic technique. br2 21:14 Chest Single View XRAY In Process Unspecified. EDMS 21:14 XRAY Humerus RIGHT In Process Unspecified. EDMS 21:14 XRAY Forearm RIGHT In Process Unspecified. EDMS 21:25 Upper Ext Artery Uni Braxton In Process Unspecified. EDMS 21:26 UPPER EXTREMITY VENOUS UNILATE In Process Unspecified. EDMS 22:20 Monica Welch, RN is Primary Nurse. vc1 22:32 initiated transfer with Augusta Robles at [facility]. kmf 23:00 Jones cath inserted, using sterile technique, 16 Fr., by industrial relations worker, balloon inflated, to vc1 gravity drainage, urine specimen collected. 23:05 Delay in bed acceptance. Awaiting the room to be cleaned. Per Augusta Robles. kmf 23:49 pt was accepted to [facility] - [address] [place] [address] Doug Cruz accepted \\T\\ 2327. Augusta Robles [facility] admin approval \\T\\ 2327. [facility] to transfer pt once nurse to nurse is complete. 08/15 00:39 No provider procedures requiring assistance completed. vc1 01:27 Patient transferred, IV remains in place. vc1 Administered Medications: 08/14 20:40 CANCELLED (Physician Discretion): ns 0.9% 1000 ml IV at 1000 ml once; to be given as a ec2 bolus over 60 minutes 20:47 Drug: vancoMYCIN IVPB 1 grams IVPB once over 2 hrs Route: IVPB; Infused Over: 2 hrs; vc1 Site: left forearm; 22:47 Follow up: IV Status: Completed infusion; IV Intake: 250ml vc1 20:47 Drug: NS 0.9% IV 2000 ml IV at 2 bolus Per protocol; to be given as a bolus over 60 vc1 minutes Route: IV; Rate: 2 bolus; Site: left forearm; 22:00 Follow up: IV Status: Completed infusion; IV Intake: 2000ml vc1 20:48 Drug: Keppra IV 1000 mg IV at calculated rate once Route: IV; Rate: calculated rate; vc1 Site: left forearm; 21:08 Follow up: IV Status: Completed infusion; IV Intake: 100ml vc1 22:58 Drug: DuoNeb Nebulize (3:1) (2.5 mg - 0.5 mg) 3 ml Nebulizer once Route: Nebulizer; vc1 22:58 Drug: MethylPrednisoLONE IVP 125 mg IVP once Route: IVP; Site: left forearm; vc1 22:58 Drug: Rocephin IV 1 grams IV at calculated rate once; Given slow IV push per pharmacy vc1 instructions Route: IV; Rate: calculated rate; Site: left forearm; 23:05 Follow up: IV Status: Completed infusion; IV Intake: 10ml vc1 23:12 Drug: Keppra IV 1500 mg IV at bolus once Route: IV; Rate: bolus; Site: left forearm; vc1 Medication: 20:02 VIS not applicable for this client. vc1 Intake: 21:08 IV: 100ml; Total: 100ml. vc1 22:00 IV: 2000ml; Total: 2100ml. vc1 22:47 IV: 250ml; Total: 2350ml. vc1 23:05 IV: 10ml; Total: 2360ml. vc1 Outcome: 22:26 ER care complete, transfer ordered by . ec2 08/15 01:26 Transferred by ground EMS to [facility], Transfer form completed. vc1 X-rays sent w/ patient. Condition: good Instructed on the need for transfer, 01:27 Patient left the ED. vc1 Signatures: Dispatcher [employer] EDMS Ryan Bryant MD MD rn Calcote, Vanessa, RN RN vc1 Clark Rodriguez MD MD ec2 Martina Ibanez Vivian vk Riddle, Belinda, RN RN br2 Corrections: (The following items were deleted from the chart) 08/14 20:08 20:02 BP 147 / 90; Pulse 128bpm; Resp 14bpm; Pulse Ox 93%; vc1 vc1 23:48 23:32 initiated transfer with Augusta Robles at [facility]. kmf kmf 23:48 22:32 initiated transfer with Augusta Robles at [facility]. [facility] 23:54 23:49 pt was accepted to [facility] - [address] Doug Cruz [facility]
--- NOTE | 2024-08-14 22:26 | EDPHYS ---
Physician Documentation [facility] Name: Dunia Robles Age: 68 yrs Sex: Female : 1955 Arrival Date: 08/14/2024 Time: 19:47 Bed 6 Private MD: ED Physician Clark Rodriguez HPI: 08/14 19:52 This 68 yrs old Female presents to ER via Unassigned with complaints of seizure. rn 19:52 The patient presents with a history of multiple seizures, a total of 4. Seizure onset: rn the onset is not known. Current symptoms: decreased level of consciousness. The patient has experienced similar episodes in the past. EMS reports at least 4 seizures now, given 2 mg of Ativan by EMS with cessation of her most recent seizure. Reports history of seizures, is supposed to take Keppra. EMS reports fell and unknown trauma. Has baseline right-sided contractures. No other information given. Patient is sedated, protecting airway but not answering questions. No seizure activity noted.. Historical: - Allergies: 19:56 No Known Allergies; vc1 - PMHx: 19:56 Cerebrovascular accident; Chronic obstructive lung disease; Gastroesophageal reflux vc1 disease; Hyperlipidemia; Anemia; Hypertensive disorder; Hemiplegia/Hemiparesis (Hypertensive disorder); Cellulitis; Insomnia; Dysphagia; Quadraplegia; - PSHx: 19:56 PEG Tube; vc1 - Immunization history:: Adult Immunizations up to date. - Infectious Disease History:: Denies. - Social history:: Smoking status: unknown. - Unable to obtain history due to: altered mental status. ROS: 19:52 Unable to obtain ROS due to altered mental status, rn 20:44 Constitutional: as per hpi ec2 Exam: 19:52 Constitutional: Sedated patient, no acute distress, no seizure activity. Eyes: Pupils rn equal round and reactive to light Cardiovascular: Tachycardic, regular Respiratory: Protecting airway Abdomen/GI: Soft, nontender, nondistended MS/ Extremity: Right upper extremity with swelling and erythema with warmth. Difficult to appreciate a radial pulse on the right wrist. No open wounds. Difficult to assess for injury as patient has status post Ativan and seizure Neuro: Somnolent, responds somewhat to pain and withdraws from pain. Does not answer questions. Vital Signs: 19:52 Temp 99.5(R); vc1 20:02 BP 147 / 90; Pulse 128; Resp 25; Pulse Ox 93% ; vc1 20:08 Weight 55.34 kg; vc1 20:49 BP 151 / 122; Pulse 137; Resp 19; Pulse Ox 97% on 2 lpm NC; vc1 21:25 BP 168 / 118; Pulse 108; ec2 21:45 BP 163 / 102; Pulse 110; Resp 17; Pulse Ox 97% on 2 lpm NC; vc1 22:45 BP 130 / 96; Pulse 102; Resp 16; Pulse Ox 97% ; vc1 23:45 BP 171 / 98; Pulse 98; Resp 15; Pulse Ox 100% ; vc1 08/15 00:24 BP 123 / 80; Pulse 91; ec2 01:26 BP 116 / 78; Pulse 89; Resp 14; Pulse Ox 91% on R/A; vc1 MDM: 08/14 19:51 Medical Screening Exam initiated rn 20:24 Data reviewed: vital signs, nurses notes. ED course: Patient with history of seizures ec2 arrives today with seizures x 3. Patient with significant neurologic deficits secondary to cerebrovascular accident. Patient given Keppra, lab work obtained, plan is to obtain CT imaging, lab work and further assess.. 20:41 ED course: Patient with lactic acidosis of 8.1, consistent with patient's seizure prior ec2 to arrival. 20:44 ED course: CBC is reassuring. Metabolic profile shows hyponatremia with a sodium of ec2 125. Lactic acid at 8.1. Glucose within normal ranges. Pending imaging.. 21:25 ED course: Sepsis reassessment complete.. ec2 22:24 ED course: Radiographs show dislocated right shoulder. No previous to compare to. ec2 Patient is chronically contracted and has limited movement of the right upper extremity, I favor this to be chronic. Additionally I do not feel patient will be an appropriate candidate to have this reduced if this were acute.. 22:24 ED course: Patient will require transfer for continuous EEG given the patient's poor ec2 baseline status and possible for status epilepticus.. 22:50 ED course: I discussed case with neurology at [facility] who agrees accept ec2 patient for transfer.. 08/14 19:50 Order name: Blood Culture Adult (2) rn 08/14 19:50 Order name: CBC with Diff; Complete Time: 20:43 rn 08/14 19:50 Order name: CMP; Complete Time: 20:43 rn 08/14 19:50 Order name: Lactate w/ 2H reflex if indic.; Complete Time: 20:43 rn 08/14 19:50 Order name: Protime (+inr); Complete Time: 20:43 rn 08/14 19:50 Order name: Ptt, Activated; Complete Time: 20:43 rn 08/14 19:50 Order name: Urinalysis w/ reflexes; Complete Time: 00:25 rn 08/14 20:16 Order name: Glucose, Ancillary Testing; Complete Time: 20:43 EDWY 08/14 20:38 Order name: Ghost Lactate-NO COLLECT Timer; Complete Time: 22:36 EDMS 08/14 23:08 Order name: Urine Culture EDWY 08/14 23:56 Order name: Lactate Sepsis 2 HR Follow-up; Complete Time: 00:25 EDWY 08/14 19:50 Order name: Chest Single View XRAY; Complete Time: 21:54 rn 08/14 19:50 Order name: XRAY Humerus RIGHT; Complete Time: 21:54 rn 08/14 19:50 Order name: XRAY Forearm RIGHT; Complete Time: 21:54 rn 08/14 20:21 Order name: Head C Spine Mpr Wo Con; Complete Time: 21:25 EDWY 08/14 20:21 Order name: Chest Abd Pelvis Wo Con; Complete Time: 21:25 EDMS 08/14 20:27 Order name: Upper Ext Artery Uni Braxton; Complete Time: 21:54 EDWY 08/14 21:26 Order name: UPPER EXTREMITY VENOUS UNILATE; Complete Time: 21:54 EDWY 08/14 19:50 Order name: Accucheck; Complete Time: 20:10 rn 08/14 19:50 Order name: Cardiac monitoring; Complete Time: 20:00 rn 08/14 19:50 Order name: EKG - Nurse/Tech; Complete Time: 20:00 rn 08/14 19:50 Order name: IV Saline Lock - Large Bore; Complete Time: 20:00 rn 08/14 19:50 Order name: Labs collected and sent; Complete Time: 20:00 rn 08/14 19:50 Order name: O2 Per Protocol; Complete Time: 20:00 rn 08/14 19:50 Order name: O2 Sat Monitoring; Complete Time: 20:00 rn 08/14 19:50 Order name: Vital Signs; Complete Time: 20:10 rn Administered Medications: 20:40 CANCELLED (Physician Discretion): ns 0.9% 1000 ml IV at 1000 ml once; to be given as a ec2 bolus over 60 minutes 20:47 Drug: vancoMYCIN IVPB 1 grams IVPB once over 2 hrs Route: IVPB; Infused Over: 2 hrs; vc1 Site: left forearm; 22:47 Follow up: IV Status: Completed infusion; IV Intake: 250ml vc1 20:47 Drug: NS 0.9% IV 2000 ml IV at 2 bolus Per protocol; to be given as a bolus over 60 vc1 minutes Route: IV; Rate: 2 bolus; Site: left forearm; 22:00 Follow up: IV Status: Completed infusion; IV Intake: 2000ml vc1 20:48 Drug: Keppra IV 1000 mg IV at calculated rate once Route: IV; Rate: calculated rate; vc1 Site: left forearm; 21:08 Follow up: IV Status: Completed infusion; IV Intake: 100ml vc1 22:58 Drug: DuoNeb Nebulize (3:1) (2.5 mg - 0.5 mg) 3 ml Nebulizer once Route: Nebulizer; vc1 22:58 Drug: MethylPrednisoLONE IVP 125 mg IVP once Route: IVP; Site: left forearm; vc1 22:58 Drug: Rocephin IV 1 grams IV at calculated rate once; Given slow IV push per pharmacy vc1 instructions Route: IV; Rate: calculated rate; Site: left forearm; 23:05 Follow up: IV Status: Completed infusion; IV Intake: 10ml vc1 23:12 Drug: Keppra IV 1500 mg IV at bolus once Route: IV; Rate: bolus; Site: left forearm; vc1 Disposition Summary: 08/14/24 22:26 Transfer Ordered Notes: Transfer Location: [facility] ec2 Reason: Higher level of care ec2 Condition: Stable ec2 Problem: an acute exacerbation ec2 Symptoms: have improved ec2 Accepting Physician: alison vázquez(08/15/24 01:27) vc1 Diagnosis - Epilepsy, unspecified, not intractable, with status epilepticus ec2 Forms: - Medication Reconciliation Form ec2 - SBAR form ec2 Critical care time excluding procedures: 22:50 Critical care time: Bedside Care: 30 minutes, Consultation: 5 minutes. Total time: 35 ec2 minutes Signatures: Dispatcher [employer] EDMS Ryan Bryant MD MD rn Calcote, Vanessa, RN RN vc1 Clark Rodriguez MD MD ec2 Corrections: (The following items were deleted from the chart) 19:52 19:52 Head Brain Wo Cont+CT.RAD.BRZ ordered. EDMS EDMS 19:52 19:52 Head C Spine Cap Wo Con+CT.RAD.BRZ ordered. EDMS EDMS 19:52 19:52 Extremity Venous Uni Ltd+US.RAD.BRZ ordered. EDMS EDMS 19:52 19:52 Lower Extremity Artery Uni Ltd+US.RAD.BRZ ordered. EDMS EDMS 19:52 19:52 Humerus Right+RAD.RAD.BRZ ordered. EDMS EDMS 19:52 19:52 Forearm Right+RAD.RAD.BRZ ordered. EDMS EDMS 20:16 19:52 Constitutional: Sedated patient, no acute distress, no seizure activity. Eyes: rn Pupils equal round and reactive to light Cardiovascular: Regular rate and rhythm. No pulse deficits. Respiratory: Protecting airway Abdomen/GI: Soft, nontender, nondistended MS/ Extremity: Right upper extremity with swelling and erythema with warmth. Difficult to appreciate a radial pulse on the right wrist. No open wounds. Difficult to assess for injury as patient has status post Ativan and seizure Neuro: Somnolent, responds somewhat to pain and withdraws from pain. Does not answer questions. rn 20:40 20:16 NS 0.9% IV 1000 ml IV at 1000 ml once; to be given as a bolus over 60 minutes ec2 ordered. ec2 08/15 01:27 08/14 22:26 transferring doc ec2 vc1
[2024-08-14] MEDS ORDERED: METHYLPREDNISOLONE 125 MG INJ ONE (22:50)
[2024-08-14] MEDS ORDERED: IPRATROPIUM BROM 0.5MG/2.5ML ONE (22:50)
[2024-08-14] MEDS ORDERED: ALBUTEROL 2.5 MG/3 ML NEB SOL ONE (22:50)
[2024-08-14] MEDS ORDERED: CEFTRIAXONE 1000 MG/VIAL ONE (22:50)
[2024-08-14 23:04] LABS: Sqamous Epithelial None Seen /HPF (None Seen); Urine Bacteria <20 /HPF (<20); Urine Culture Reflex Order REFLEXED; Urine Mucus Slight /HPF (None Seen); Urine RBC 21-50 /HPF (None Seen); Urine WBC >50 /HPF (<5); Urine WBC Clump Moderate /HPF (None Seen)
[2024-08-14 23:05] LABS: Specific Gravity 1.005 (1.005-1.030); Urine Bilirubin NEGATIVE (Negative); Urine Blood 2+ (Negative); Urine Clarity Extremely Turbid (Clear); Urine Color Light-Orange (Yellow); Urine Glucose NEGATIVE (Negative); Urine Ketones NEGATIVE (Negative); Urine Microscopic Reflex YN NO UMIC; Urine Nitrite NEGATIVE (Negative); Urine Protein 1+ (Negative); Urine Urobilinogen Normal (Normal); Urine pH 6.5 (5.0-7.0)
[2024-08-15 10:50] VITALS: TEMP 99.5
[2024-08-15 11:00] VITALS: BP 116/78; O2SAT 91
--- NOTE | 2024-08-15 11:44 | EKG ---
Test Date: 2024-08-14 Test Time: 20:04:52 Transplanter Orchid: EBER MEASUREMENT RESULTS: Intervals: Rate: 141 NH: 136 QRSD: 88 QT: 290 QTc: 444 [place]: P: 71 NH: 136 QRS: 45 T: 70 INTERPRETIVE STATEMENTS: Sinus tachycardia Otherwise normal ECG No previous ECG available for comparison Electronically Signed On 08-15-24 11:43:42 DEMOLITIONIST by Selvin Stone
== END 2024-08-15 01:27 | disposition short-term general hospital (02) ==
LOC: ER 19:47
DX: G40.901 Epilepsy, unspecified, not intractable, with status epilepticus (principal); S43.084A Other dislocation of right shoulder joint, initial encounter; G82.50 Quadriplegia, unspecified; W18.30XA Fall on same level, unspecified, initial encounter; I10 Essential (primary) hypertension; J44.9 Chronic obstructive pulmonary disease, unspecified; Z86.73 Personal history of transient ischemic attack (TIA), and cerebral infarction without residual deficits
CPT/HCPCS: 93005; 87040 ×2; 87088; 85025; 87086; 36415; 85610; 82947; 83605 ×2; 85730; 81003; 80053; 70450; 71250; 72125; 74176; 71045; 73090; 73060; 93971; 93931; J1953 ×2; J7613; J7644; J2919; J7050; J7030 ×2; J0696

== ENCOUNTER 2024-09-03 11:12 | Emergency (ER) | payer OTHER ==
[2024-09-03] MEDS ORDERED: TDAP (DIPHTH,PERTUSS(ACELL),TET VAC) 0.5 ML VIAL IMVAC ONE (11:38)
--- NOTE | 2024-09-03 12:09 | RAD REPORT ---
EXAM: CT brain without contrast HISTORY: TRAUMA COMPARISON: 08/14/2024 TECHNIQUE: Multiple contiguous axial images were obtained and a CT of the brain without contrast. Sag ittal and coronal reformats were performed. One or more of the following dose reduction techniques were used: Automated exposure control, adjust ment of the mA and/or kV according to patient size, and/or iterative reconstruction. FINDINGS: No evidence of hydrocephalus, intracranial hemorrhage, or extra-axial fluid collection. Mild brain atrophy with mild periventricular and deep white matter chronic microvascular ischemic ch anges present. Area of gliosis left parietal region unchanged, compatible with remote infarct. The calvarium is intact. The visualized paranasal sinuses and mastoid air cells are essentially clear . IMPRESSION: No evidence of acute intracranial abnormality. EXAM: CT of the cervical spine without contrast HISTORY: Neck pain, injury TRAUMA TECHNIQUE: Multiple contiguous axial images were obtained in a CT of the cervical spine without contr ast. Sagittal and coronal reformats were performed. FINDINGS: The vertebral bodies demonstrate normal height and alignment. No evidence of acute fracture or subluxation.. Mild lower cervical degenerative changes. No prevertebral soft tissue swelling is seen. The posterior facets are well aligned. Normal alignment of the skull base with the cervical spine is seen. Moderate atherosclerosis both carotid bulbs. The upper lung ferrari are emphysematous with a small nodule with spiculated margins in the right apex measuring 5 mm IMPRESSION: No evidence of acute osseous abnormality of the cervical spine. 5 mm spiculated nodule in the right upper lobe. Recommend follow-up CT chest in 3 months to monitor.
--- NOTE | 2024-09-03 12:19 | EDPHYS ---
[facility] Name: Dunia Robles Age: 68 yrs Sex: Female : 1955 Arrival Date: 09/03/2024 Time: 11:12 Bed 18 Private MD: ED Physician Dm Reyes HPI: 09/03 11:28 This 68 yrs old Female presents to ER via EMS with complaints of Fall. ms3 11:28 68-year-old female with past medical history of anemia, cellulitis, CVA, COPD, ms3 dysphagia, hyperlipidemia, hypertension presents to the emergency department via [facility] status post rolling and falling out of bed with posterior head injury. Patient is nonverbal. [facility] stated patient was at baseline.. Historical: - Allergies: 11:31 No Known Allergies; ll1 - PMHx: 11:21 Anemia; Cellulitis; Cerebrovascular accident; Chronic obstructive lung disease; ll1 DYSPHAGIA; Gastroesophageal reflux disease; Hemiplegia/hemiparesis (Hypertensive disord); Hyperlipidemia; Hypertensive disorder; insomnia; quadraplegia; - PSHx: 11:21 PEG tube; ll1 - Immunization history:: Adult Immunizations up to date. - Infectious Disease History:: Denies. - Social history:: Smoking status: Patient denies any tobacco usage or history of. ROS: 11:28 Unable to obtain ROS due to Patient is nonverbal, ms3 Exam: 11:28 Constitutional: This is a well developed, well nourished patient who is awake, alert, ms3 and in no acute distress. 11:28 Cardiovascular: Regular rate and rhythm with a normal S1 and S2. No gallops, murmurs, or rubs. Normal PMI, no JVD. No pulse deficits. Respiratory: Lungs have equal breath sounds bilaterally, clear to auscultation and percussion. No rales, rhonchi or wheezes noted. No increased work of breathing, no retractions or nasal flaring. Abdomen/GI: Soft, non-tender, with normal bowel sounds. No distension or tympany. No guarding or rebound. No evidence of tenderness throughout. 11:28 Head/face: Noted is abrasion(s), that are moderate, of the scalp, contusion, that is superficial, of the scalp, 11:28 Musculoskeletal/extremity: Right-sided contractures. ms3 Vital Signs: 11:29 BP 107 / 79; Pulse 99; Resp 17; Temp 97.4; Pulse Ox 96% ; Weight 49.44 kg; Height 5 ft. ll1 9 in. ; Pain 0/10; 12:00 BP 114 / 81; Pulse 96; Resp 17; Pulse Ox 96% on R/A; ll1 13:00 BP 121 / 78; Pulse 89; Resp 17; Pulse Ox 94% ; Pain 0/10; ll1 11:29 Body Mass Index 16.10 (49.44 kg, 175.26 cm) ll1 11:29 Pain Scale: Adult ll1 13:00 Pain Scale: Adult ll1 MDM: 11:27 Medical Screening Exam initiated ms3 11:28 Differential diagnosis: Contusion of head, Hematoma on head, Intracranial bleed- ms3 subdural, subarachnoid, Concussion without LOC. cerebral contusion. 14:14 Data reviewed: vital signs, nurses notes, and as a result, I will discharge patient. I ms3 considered the following discharge prescriptions or medication management in the emergency department Medications were administered in the Emergency Department. See MAR. Historians other than the Patient: EMS: [facility]. Counseling: I had a detailed discussion with the patient and/or guardian regarding the historical points, exam findings, and any diagnostic results supporting the discharge/admit diagnosis, radiology results. 14:23 ED course: Called [facility] and discussed pulmonary nodule in right ms3 upper lobe with Gabby. On reevaluation patient remained at baseline. Patient remained alert, without vomiting.. 09/03 11:27 Order name: CT Head C Spine; Complete Time: 12:12 ms3 Administered Medications: 12:02 Drug: Boostrix Tdap IM 0.5 ml IM once; as a single dose Route: IM; Site: right vastus ll1 lateralis; 12:32 Follow up: Response: No adverse reaction me1 Disposition: 14:24 Chart complete. ms3 Disposition Summary: 09/03/24 12:19 Discharge Ordered Notes: Location: Home ms3 Condition: Stable ms3 Diagnosis - Fall from bed, initial encounter ms3 - Abrasion of scalp, initial encounter ms3 Followup: ms3 - With: Private Physician - When: 2 - 3 days - Reason: Recheck today's complaints Discharge Instructions: - Discharge Summary Sheet ms3 - Fall Prevention in the Home, Adult, [id number] ms3 - Understanding Your Risk for Falls ms3 Forms: - Medication Reconciliation Form ms3 - Antibiotic Education ms3 - Prescription Opioid Use ms3 - Patient Portal Instructions ms3 - Leadership Thank You Letter ms3 Signatures: Dispatcher [employer] Jovanni Singleton, RN RN ll1 Dm Reyes DO DO ms3 Kalyani Gallegos RN me1 Corrections: (The following items were deleted from the chart) 11:28 11:28 Head C Spine MPR Wo Con+CT.RAD.BRZ ordered. EDMS EDMS 11: 11:27 Labs collected and sent ordered. ms3 ll1 11:41 11:32 Head C Spine MPR Wo Con+CT.RAD.BRZ ordered. EDMS EDMS
--- NOTE | 2024-09-03 12:19 | ER ---
Nurse's Notes [facility] Name: Dunia Robles Age: 68 yrs Sex: Female : 1955 Arrival Date: 09/03/2024 Time: 11:12 Bed 18 Private MD: Diagnosis: Fall from bed, initial encounter;Abrasion of scalp, initial encounter Presentation: 09/03 11:22 Chief complaint: EMS states: fall, hit head on wheelchair. No blood thinners. ll1 Coronavirus screen: Client denies travel out of the [place] in the last 14 days. At this time, the client does not indicate any symptoms associated with coronavirus-19. Ebola Screen: Patient denies travel to an Ebola-affected area in the 21 days before illness onset. Initial Sepsis Screen: Does the patient meet any 2 criteria? No. Patient's initial sepsis screen is negative. Does the patient have a suspected source of infection? No. Patient's initial sepsis screen is negative. Risk Assessment: Do you want to hurt yourself or someone else? Patient reports no desire to harm self or others. Onset of symptoms was September 03, 2024. 11:22 Method Of Arrival: EMS: [facility] ll1 11:22 Acuity: SANTY 3 ll1 11:29 Chief complaint: Patient states: Denies head pain. ll1 Triage Assessment: 11:23 General: Appears uncomfortable, Behavior is calm, cooperative, appropriate for age. ll1 Pain: Complains of pain in scalp Quality of pain is described as aching. Neuro: Reports headache. Derm: Reports hematoma to posterior scalp. Historical: - Allergies: 11:31 No Known Allergies; ll1 - PMHx: 11:21 Anemia; Cellulitis; Cerebrovascular accident; Chronic obstructive lung disease; ll1 DYSPHAGIA; Gastroesophageal reflux disease; Hemiplegia/hemiparesis (Hypertensive disord); Hyperlipidemia; Hypertensive disorder; insomnia; quadraplegia; - PSHx: 11:21 PEG tube; ll1 - Immunization history:: Adult Immunizations up to date. - Infectious Disease History:: Denies. - Social history:: Smoking status: Patient denies any tobacco usage or history of. Screenin:16 [facility] ED Fall Risk Assessment (Adult) History of falling in the last 3 months, ll1 including since admission Yes- single mechanical fall (1 pt) Confusion or Disorientation Yes (5 pts) Intoxicated or Sedated No (0 pts) Impaired Gait Yes (1 pt) Mobility Assist Device Used Yes (1 pt) Altered Elimination Yes (1 pt) Score/Fall Risk Level 3 or more points = High Risk Maintained a safe environment, Hourly rounding (assess needs \T\ fall precautionary measures) done, Used ambulatory aids as needed (educated on \T\ assisted with). Abuse screen: Denies threats or abuse. Nutritional screening: No deficits noted. Tuberculosis screening: No symptoms or risk factors identified. Assessment: 12:35 Reassessment: Called report to Penelope at [facility]. [place] is setting up ms1 transportation for the patient to go back. Vital Signs: 11:29 BP 107 / 79; Pulse 99; Resp 17; Temp 97.4; Pulse Ox 96% ; Weight 49.44 kg; Height 5 ft. ll1 9 in. ; Pain 0/10; 12:00 BP 114 / 81; Pulse 96; Resp 17; Pulse Ox 96% on R/A; ll1 13:00 BP 121 / 78; Pulse 89; Resp 17; Pulse Ox 94% ; Pain 0/10; ll1 11:29 Body Mass Index 16.10 (49.44 kg, 175.26 cm) ll1 11:29 Pain Scale: Adult ll1 13:00 Pain Scale: Adult ll1 ED Course: 11:14 Patient arrived in ED. bd 11:14 Dm Reyes DO is Attending Physician. ms3 11:21 Arm band placed on Patient placed in an exam room, on a stretcher. ll1 11:22 Triage completed. ll1 11:31 Jovanni Sesay, CORIN is Primary Nurse. ll1 11:44 CT Head C Spine In Process Unspecified. EDMS 13:16 No provider procedures requiring assistance completed. Patient did not have IV access ll1 during this emergency room visit. 13:17 Patient has correct armband on for positive identification. Provided Education on: ll1 return to ED for worsening symptoms. Administered Medications: 12:02 Drug: Boostrix Tdap IM 0.5 ml IM once; as a single dose Route: IM; Site: right vastus ll1 lateralis; 12:32 Follow up: Response: No adverse reaction me1 Medication: 13:17 Vaccine Information Statement (VIS) provided today. Questions and/or concerns ll1 addressed. VIS edition date: February 06, 2021. Outcome: 12:19 Discharge ordered by . ms3 13:16 Discharged to home via ambulance, ll1 13:16 Condition: stable 13:16 Discharge instructions given to patient, Instructed on discharge instructions, follow up and referral plans. Demonstrated understanding of instructions, follow-up care, 13:17 Patient left the ED. ll1 Signatures: Dispatcher [employer] EDTabitha Menon Lynsay, RN RN ll1 Dm Reyes DO DO ms3 Kalyani Gallegos, RN RN me1
[2024-09-03 13:46] VITALS: TEMP 97.4
[2024-09-03 13:48] VITALS: BP 121/78; O2SAT 94
== END 2024-09-03 13:17 | disposition home or self-care (01) ==
LOC: ER 11:12
DX: S00.01XA Abrasion of scalp, initial encounter (principal); W06.XXXA Fall from bed, initial encounter; G82.50 Quadriplegia, unspecified
CPT/HCPCS: 70450; 72125; 96372; 99284

== ENCOUNTER 2025-02-15 19:27 | Emergency (ER) | payer OTHER ==
[2025-02-15 20:24] LABS: Blood Gas Oxyhemoglobin 97.1 % (94.0-97.0); Blood O2 Saturation 98.1 % (92.0-98.5)
[2025-02-15 20:25] LABS: Arterial Blood Carboxyhemoglob 2.1 % (0.0-1.5); Blood Gas Inspired Oxygen 40.0 %
[2025-02-15 20:39] LABS: Absolute Lymphocytes (CBC) 1.0 K/uL (0.7-4.9); Hematocrit 34.0 % (36.0-45.0); Hemoglobin 11.4 g/dL (12.0-15.0); MCH 30.6 pg (27.0-35.0); MCHC 33.6 g/dL (32.0-36.0); MCV 91.0 fL (80-100); MPV 8.8 fL (7.6-11.3); Nucleated RBC Absolute Count 0.0 (0-0); Nucleated Red Blood Cells % 0.0 % (0-0); RBC Red Blood Cell Count 3.74 M/uL (3.86-4.86); White Blood Count 8.80 thou/uL (4.3-10.9)
[2025-02-15] MEDS ORDERED: NA CHLORIDE 0.9% 1,000 ML ONE (20:43)
[2025-02-15] MEDS ORDERED: ACETAMINOPHEN 650MG/RECT SUPP PR ONE (20:43)
[2025-02-15] MEDS ORDERED: NA CHLORIDE 0.9% 500 ML ONE (20:44)
[2025-02-15 20:48] LABS: PT Prothrombin Time 12.9 SECONDS (10-13.0); PTT, Activated Partial Thromb 31.0 SECONDS (27.2-37.4); Protime INR 1.15
[2025-02-15 20:53] LABS: Influenza A Ag Negative; Influenza B Ag Negative
[2025-02-15 20:56] LABS: SARS-CoV-2 Antigen Rapid Res Positive (Negative)
--- NOTE | 2025-02-15 21:03 | RAD REPORT ---
Procedure: Chest Single View HISTORY: Shortness of breath COMPARISON: January 2025 CT chest FINDINGS: The lungs appear clear of acute infiltrate. No significant pleural effusion noted. The heart is normal size.. Stable mild aneurysm thoracic aorta. IMPRESSION: No acute abnormality is displayed.
[2025-02-15 21:06] LABS: ALT/SGPT 25.0 U/L (13-56); AST/SGOT 32.0 U/L (15-37); Albumin 3.0 g/dL (3.4-5.0); Albumin/Globulin Ratio 0.7 (1.1-1.8); Alkaline Phosphatase 90.0 U/L (45-117); Anion Gap 11.8 mEq/L (5.0-15.0); BUN Blood Urea Nitrogen 36.0 mg/dL (7-18); Globulin 4.3 g/dL (2.3-3.5); Glucose Level 110.0 mg/dL (74-106); NT PRO-BNP 665.0 pg/mL (<125); Potassium 3.8 mEq/L (3.5-5.1); Troponin High Sensitivity 16.0 pg/mL (<58.9)
[2025-02-15 21:17] LABS: Sqamous Epithelial <5 /HPF (None Seen); Urine Crystals Unidentified Few /HPF (None Seen); Urine Culture Reflex Order REFLEXED; Urine Microscopic Reflex YN ORDER UMIC; Urine WBC Clump Occasional /HPF (None Seen); Urine Yeast (Budding) Few /HPF (None Seen)
[2025-02-15] MEDS ORDERED: CEFTRIAXONE 1000 MG/VIAL ONE (21:43)
[2025-02-15] MEDS ORDERED: AZITHROMYCIN 500 MG INJ IVPB ONE (21:43)
[2025-02-15] MEDS ORDERED: LEVALBUTEROL 1.25 MG/3 ML NEB ONE (21:43)
[2025-02-15] MEDS ORDERED: METHYLPREDNISOLONE 40 MG INJ ONE (21:43)
[2025-02-15] MEDS ORDERED: NA CHLORIDE 0.9% 250 ML ONE (21:44)
--- NOTE | 2025-02-15 22:16 | RAD REPORT ---
EXAM: CT brain without contrast HISTORY: Confusion/alteration of consciousness COMPARISON: January 2021 TECHNIQUE: Multiple contiguous axial images were obtained and a CT of the brain without contrast.. Sagittal and coronal reconstruction performed. Automated exposure control, adjustment of the mA and/or kV according to patient size, and/or iterative reconstruction. Unless otherwise specified, incidental f indings do not require dedicated imaging follow-up FINDINGS: An intracranial bleed is not seen Ventricles are normal caliber No extra-axial fluid collection noted Old left cerebral infarction. Old small lacunar infarction right basal pneumonia. No fluid within the visualized sinuses or mastoids noted. IMPRESSION: No acute intracranial abnormality noted. If the patient continues to have symptoms to suggest an acute intracranial abnormality then MRI of th e brain would be recommended.
--- NOTE | 2025-02-15 22:30 | RAD REPORT ---
EXAM: CT CHEST, ABDOMEN AND PELVIS WITHOUT CONTRAST CLINICAL INDICATION: Shortness of breath. Abdominal pain. TECHNIQUE: CT chest, abdomen and pelvis was performed, without IV contrast, as per department protoco l. Axial, sagittal and coronal reconstructions were obtained. One or more of the following dose reduction techniques were used: Automated exposure control, adjustment of the mA and/or kV according to the patient size, and/or iterative reconstruction. Unless otherwise specified, incidental findings do not require dedicated imaging follow-up. The lack of IV and oral contrast limits evaluation of the mediastinum, mars, vessels, organs and elisa l. COMPARISON: August and January 2025 FINDINGS: 5 mm left lower lobe nodule unchanged.. In a low-risk patient no follow-up recommended in a high risk patient follow-up CT in one year recommended Mild chronic appearing right lower lobe opacities No mediastinal or hilar lymphadenopathy seen. 4.2 cm aneurysm ascending thoracic aorta unchanged No pleural effusion. No pericardial effusion. Liver, spleen, pancreas, adrenals kidneys and bladder appear grossly normal There is no evidence of diverticulitis. Moderate to large amount of stool throughout the colon. IMPRESSION: 4.2 cm aneurysm ascending thoracic aorta unchanged Moderate to marked amount of stool throughout the colon
--- NOTE | 2025-02-15 23:14 | EDPHYS ---
Physician Documentation [facility] Name: Dunia Robles Age: 69 yrs Sex: Female : 1955 Arrival Date: 02/15/2025 Time: 19:27 Bed 2 Private MD: ED Physician Dm Reyes HPI: 02/15 20:00 This 69 yrs old Female presents to ER via EMS with complaints of Altered Mental Status. cp 20:00 The patient presents with decreased mental status, decreased responsiveness. Onset: The cp symptoms/episode began/occurred today. Possible causes: sepsis, the patient lives in a senior living, recently tested positive for COVID. Current symptoms: In the emergency department the patient's symptoms are unchanged from the initial presentation, despite EMS interventions. 20:00 Patient's baseline: Neuro: Motor: right-sided weakness, from previous CVA, Ambulation: cp unable to walk, non-verbal but responsive to voice. Historical: - Allergies: 19:56 No Known Allergies; vc1 - PMHx: 19:56 Anemia; Cellulitis; Cerebrovascular accident; Chronic obstructive lung disease; vc1 DYSPHAGIA; Gastroesophageal reflux disease; Hemiplegia/hemiparesis (Hypertensive disord); Hyperlipidemia; Hypertensive disorder; insomnia; quadraplegia; - PSHx: 19:56 PEG tube; vc1 - Immunization history:: Adult Immunizations unknown. - Infectious Disease History:: Denies. - Social history:: Smoking status: unknown. ROS: 20:05 Constitutional: Positive for low grade fever, cp 20:05 Cardiovascular: cp 20:05 Respiratory: Positive for shortness of breath, at rest. 20:05 Abdomen/GI: Negative for vomiting, diarrhea, 20:05 Neuro: Positive for altered mental status, 20:05 Unable to obtain ROS due to altered mental status, Exam: 20:45 Head/Face: Normocephalic, atraumatic. cp 20:45 Constitutional: The patient appears non-diaphoretic, well developed, frail, 20:45 Eyes: Periorbital structures: appear normal, Pupils: equal, round, and reactive to cp light and accomodation, Conjunctiva: normal, no exudate, no injection, Sclera: no appreciated abnormality, Lids and lashes: appear normal, bilaterally, 20:45 ENT: External ear(s): are unremarkable, Nose: is normal, Mouth: Lips: dry, Oral mucosa: dry, Posterior pharynx: Airway: no evidence of obstruction, patent, 20:45 Chest/axilla: Inspection: normal, 20:45 Cardiovascular: Rate: tachycardic, Rhythm: regular, Edema: is not appreciated, JVD: is not appreciated, 20:45 Respiratory: moderate respiratory distress is noted, Respirations: labored breathing, that is moderate, shallow respirations, that is moderate, Breath sounds: stridor, is not appreciated, wheezing: is not appreciated, 20:45 Abdomen/GI: Inspection: abdomen appears normal, Palpation: abdomen is soft and non-tender, in all quadrants, 20:45 Skin: cellulitis, is not appreciated, no rash present. 21:00 ECG was reviewed by the Attending Physician. Vital Signs: 19:46 BP 105 / 83; Pulse 126; Resp 14; Temp 100.1(A); Pulse Ox 100% on R/A; vc1 20:00 BP 103 / 78; Pulse 118; Resp 14; Pulse Ox 98% on BiPAP; FiO2 40 %; vc1 20:37 Weight 53.98 kg; vc1 21:00 BP 92 / 75; Pulse 129; Resp 14; Pulse Ox 93% ; vc1 22:19 BP 96 / 80; Pulse 84; Resp 19; Temp 96.9; Pulse Ox 99% on BiPAP; FiO2 40 %; vc1 23:00 BP 122 / 91; Pulse 85; Resp 15; Pulse Ox 100% ; vc1 16 00:00 BP 102 / 75; Pulse 77; Resp 20; Pulse Ox 99% ; vc1 01:00 BP 118 / 78; Pulse 77; Resp 17; Pulse Ox 99% ; vc1 02:35 BP 141 / 98; Pulse 71; Resp 17; Pulse Ox 100% ; vc1 MDM: 02/15 21:00 Differential Diagnosis: CVA, electrolyte abnormality, intracranial bleed, pneumonia, cp seizure, sepsis, UTI, volume depletion. 22:00 Post IV fluid administration reassessment for Sepsis: Client prescribed 30 mL/kg IVF. Focused Assessment performed: February 15, 2025 at 22:00 Current vital signs reviewed: Yes. 23:13 Medical Screening Exam initiated 23:15 Data reviewed: vital signs, nurses notes, lab test result(s), EKG, radiologic studies, cp CT scan, plain films, and as a result, I will admit patient. 23:15 Management of patient was discussed with the following: Hospitalist: MR Ying. I cp considered the following discharge prescriptions or medication management in the emergency department Medications were administered in the Emergency Department. See MAR. Independent interpretation of the following test(s) in the Emergency Department EKG: See my EKG interpretation above. Historians other than the Patient: EMS: provides hpi. Care significantly affected by the following chronic conditions: Chronic Obstructive Pulmonary Disease. Response to treatment: the patient's symptoms have mildly improved after treatment. 02/16 00:15 ED course: patient evaluated in ED by hospitalist. hospitalist requesting transfer for cp MRI. 01:15 ED course: consult with urban planner at [facility], DR Cheng, who will accept cp transfer. 02/15 19:54 Order name: BNP; Complete Time: 21:12 cp 02/15 19:54 Order name: Blood Culture Adult (2) cp 02/15 19:54 Order name: CBC with Diff; Complete Time: 20:59 cp 02/16 01:13 Interpretation: Normal except: RBC 3.74; HGB 11.4; HCT 34.0; MARIANELA% 82.1; LYM% 11.2. cp 02/15 19:54 Order name: CMP; Complete Time: 21:12 cp 02/16 01:14 Interpretation: Normal except: GLUC 110; BUN 36; CRE 1.88; GFR 29; ALB 3.0; GLOB 4.3; cp A/G 0.7. 02/15 19:54 Order name: Lactate w/ 2H reflex if indic.; Complete Time: 21:12 cp 02/15 19:54 Order name: Protime (+inr); Complete Time: 20:59 cp 02/15 19:54 Order name: Ptt, Activated; Complete Time: 20:59 cp 02/15 19:54 Order name: Troponin HS; Complete Time: 21:12 cp 02/15 19:54 Order name: COVID-19 Ag + Flu A+B Ag; Complete Time: 20:59 cp 02/15 19:54 Order name: ABG; Complete Time: 20:32 cp 02/15 20:32 Interpretation: ABGPO2 107. cp 02/15 20:37 Order name: UA Rfx Jose G Cult if indicated; Complete Time: 21:56 cp 02/15 21:56 Interpretation: Reviewed. cp 02/15 21:21 Order name: Urine Culture EDMS 02/16 00:38 Order name: VBG; Complete Time: 01:02 cp 02/15 19:54 Order name: Chest Single View XRAY; Complete Time: 21:12 cp 02/15 21:14 Order name: CT Chest Abdomen Pelvis W/O Contrast; Complete Time: 22:57 cp 02/15 21:14 Order name: CT Head Brain wo Cont; Complete Time: 22:57 cp 02/15 19:54 Order name: Cardiac monitoring; Complete Time: 21:00 cp 02/15 19:54 Order name: EKG - Nurse/Tech; Complete Time: 21:00 cp 02/15 19:54 Order name: IV Saline Lock - Large Bore; Complete Time: 20:37 cp 02/15 19:54 Order name: Labs collected and sent; Complete Time: 20:37 cp 02/15 19:54 Order name: O2 Per Protocol; Complete Time: 20:37 cp 02/15 19:54 Order name: O2 Sat Monitoring; Complete Time: 20:38 cp 02/15 19:54 Order name: Vital Signs; Complete Time: 20:38 cp 02/15 20:37 Order name: Jones; Complete Time: 21:11 cp EC/15 21:00 Rate is 119 beats/min. Rhythm is regular. NJ interval is normal. QRS interval is cp normal. QT interval is normal. T waves are Inverted in leads aVL, aVR. Interpreted by me. Reviewed by me. Administered Medications: 21:11 Drug: Acetaminophen NJ Suppository 650 mg NJ once Route: NJ; vc1 23:13 Follow up: Response: No adverse reaction; Marked relief of symptoms; Temperature is vc1 decreased 21:11 Drug: NS 0.9% IV (30 ml/kg) 30 ml/kg IV at bolus once; Sepsis Protocol; to be given as vc1 a bolus over 90 minutes Route: IV; Rate: bolus; Site: left antecubital; 22:45 Follow up: IV Status: Completed infusion; IV Intake: 1500ml vc1 22:16 Drug: MethylPrednisoLONE IVP 80 mg IVP once Route: IVP; Site: left antecubital; vc1 23:11 Follow up: Response: No adverse reaction vc1 22:19 Drug: Rocephin IV 1 grams IV at calculated rate once; Given slow IV push per pharmacy vc1 instructions Route: IV; Rate: calculated rate; Site: left antecubital; 22:33 Follow up: IV Status: Completed infusion; IV Intake: 10ml vc1 22:19 Drug: Zithromax IVPB 500 mg IVPB once over 1 hrs; mix in 250 mL NS Route: IVPB; Infused vc1 Over: 1 hrs; Site: left forearm; 23:19 Follow up: IV Status: Completed infusion; IV Intake: 250ml vc1 22:19 Drug: Levalbuterol Inhalation 1.25 mg Inhalation once Route: Inhalation; vc1 Disposition: 02/16 00:26 I was immediately available on-site in the Emergency Department for consultation in the ms3 care of the patient. 02/17 02:10 Chart complete. cp 02:11 Critical Care:. cp Disposition Summary: 02/16/25 00:38 Transfer Ordered Notes: Reason: Higher level of care cp Condition: Stable(02/16/25 00:38) cp Problem: new(02/16/25 00:38) cp Symptoms: have improved(02/16/25 00:38) cp Transfer Location: [facility](02/16/25 02:26) cp Accepting Physician: DR Cheng(02/16/25 04:25) vc1 Diagnosis - UTI/ Urinary tract infection, site not specified(02/16/25 00:38) cp - SARS-associated coronavirus as the cause of diseases classified elsewhere(02/16/25 cp 00:38) - Acute respiratory failure with hypoxia(02/16/25 00:38) cp - Altered mental status, unspecified(02/16/25 00:38) cp - Unspecified injury of unspecified kidney, initial encounter cp Forms: - Medication Reconciliation Form cp - SBAR form cp Critical care time excluding procedures: 02:11 Critical care time: Bedside Care: 10 minutes, Consultation: 35 minutes. Total time: 45 cp minutes Signatures: Dispatcher [employer] EDNM Rivera Spann PA PA cp Sims, Marcus, DO DO ms3 Monica Welch RN RN vc1 Corrections: (The following items were deleted from the chart) 02/15 19:55 19:55 PROBNP+C.LAB.BRZ ordered. EDMS EDMS 19:55 19:55 BLOOD CULTURE*+BA.LAB.BRZ ordered. EDMS EDMS 19:55 19:55 CBC+H.LAB.BRZ ordered. EDMS EDMS 19:55 19:55 COMPREHENSIVE METABOLIC PANEL+C.LAB.BRZ ordered. EDMS EDMS 19:55 19:55 LACTATE+C.LAB.BRZ ordered. EDMS EDMS 19:55 19:55 PROTIME (+INR)+COAG.LAB.BRZ ordered. EDMS EDMS 19:55 19:55 PTT, ACTIVATED+COAG.LAB.BRZ ordered. EDMS EDMS 19:55 19:55 Troponin High Sensitivity+C.LAB.BRZ ordered. EDMS EDMS 19:55 19:55 COVID-19 Ag + Flu A+B Ag+I.LAB.BRZ ordered. EDMS EDMS 19:55 19:55 Chest Single View+RAD.RAD.BRZ ordered. EDMS EDMS 19:55 19:55 Arterial Blood Gas+RC.LAB.BRZ ordered. EDMS EDMS 20:37 19:54 Accucheck ordered. cp vc1 02/16 00:35 02/15 23:13 Inpatient Admission cp cp 02/16 00:35 02/15 23:13 Avelino Ying cp cp 02/16 00:35 02/15 23:13 Telemetry/MedSurg (Inpatient) cp cp 02/16 00:35 02/15 23:13 Stable cp cp 02/16 00:35 02/15 23:13 new cp cp 02/16 00:35 02/15 23:13 have improved cp cp 02/16 00:35 02/15 23:13 Standard cp cp 02/16 00:35 02/15 23:13 cp cp 02/16 00:35 02/15 23:13 UTI/ Urinary tract infection, site not specified cp cp 02/16 00:35 02/15 23:13 SARS-associated coronavirus as the cause of diseases classified elsewhere cpcp 02/16 00:35 02/15 23:13 Acute respiratory failure with hypoxia cp cp 02/16 00:35 02/15 23:13 Altered mental status, unspecified cp cp 02/16 00:39 00:39 Venous Blood Gas+RC.LAB.BRZ ordered. EDMS EDMS 01:12 00:38 Doctor cp cp 02:26 00:38 [facility] cp cp 02: 01:12 Doctor cp cp 04:25 02:26 DR Cheng cp vc1
--- NOTE | 2025-02-15 23:14 | ER ---
Nurse's Notes [facility] Name: Dunia Robles Age: 69 yrs Sex: Female : 1955 Arrival Date: 02/15/2025 Time: 19:27 Bed 2 Private MD: Diagnosis: UTI/ Urinary tract infection, site not specified;SARS-associated coronavirus as the cause of diseases classified elsewhere;Acute respiratory failure with hypoxia;Altered mental status, unspecified;Unspecified injury of unspecified kidney, initial encounter Presentation: 02/15 19:46 Chief complaint: EMS states: Pt found unresponsive by oncoming nurse at detention. vc1 Pt responding to voice. Pt is COVID POSITIVE. Coronavirus screen: Client denies travel out of the [place] in the last 14 days. difficulty breathing, fever, shortness of breath, Client presents with at least one sign or symptom that may indicate coronavirus-19. Provider contacted for isolation considerations. Client reports previous positive COVID test result. pt from detention with covid diagnosis. Ebola Screen: Patient negative for fever greater than or equal to 101.5 degrees Fahrenheit, and additional compatible Ebola Virus Disease symptoms Patient denies exposure to infectious person. Patient denies travel to an Ebola-affected area in the 21 days before illness onset. No symptoms or risks identified at this time. Initial Sepsis Screen: Does the patient meet any 2 criteria? Altered Mental Status. HR > 90 bpm. Yes Does the patient have a suspected source of infection? No. Patient's initial sepsis screen is negative. Risk Assessment: Do you want to hurt yourself or someone else? Unable to obtain. Onset of symptoms is unknown. Care prior to arrival: Medication(s) given: Albuterol Neb x 1, Atrovent Neb x 1, Normal saline infusion, 400 CC Solumedrol 125 mg. Activity prior to arrival: unresponsive. Mechanism of Injury: No Mechanism of Injury. Transition of care: patient was received from another setting of care (long-term care facility), [facility]. 19:46 Method Of Arrival: EMS: [facility] vc1 19:46 Acuity: SANTY 2 vc1 Triage Assessment: 19:32 General: Appears distressed, slender, unkempt, Behavior is unresponsive. Pain: Unable vc1 to use pain scale. Patient is unresponsive. EENT: No deficits noted. No signs and/or symptoms were reported regarding the EENT system. Neuro: Level of Consciousness is awake, alert, obeys commands, Oriented to person, place, time, situation, Appropriate for age. Cardiovascular: Heart tones S1 S2 present Capillary refill < 3 seconds Patient's skin is warm and dry. Respiratory: Airway is patent Respiratory effort is even, unlabored, Respiratory pattern is regular, symmetrical, Breath sounds are clear bilaterally. GI: No deficits noted. No signs and/or symptoms were reported involving the gastrointestinal system. : No deficits noted. No signs and/or symptoms were reported regarding the genitourinary system. Derm: Skin is intact, is healthy with good turgor, Skin is dry. Musculoskeletal: right arm contracted. Historical: - Allergies: 19:56 No Known Allergies; vc1 - PMHx: 19:56 Anemia; Cellulitis; Cerebrovascular accident; Chronic obstructive lung disease; vc1 DYSPHAGIA; Gastroesophageal reflux disease; Hemiplegia/hemiparesis (Hypertensive disord); Hyperlipidemia; Hypertensive disorder; insomnia; quadraplegia; - PSHx: 19:56 PEG tube; vc1 - Immunization history:: Adult Immunizations unknown. - Infectious Disease History:: Denies. - Social history:: Smoking status: unknown. Screenin:32 [facility] ED Fall Risk Assessment (Adult) History of falling in the last 3 months, vc1 including since admission No falls in past 3 months (0 pts) Confusion or Disorientation Yes (5 pts) Intoxicated or Sedated No (0 pts) Impaired Gait Yes (1 pt) Mobility Assist Device Used No (0 pt) Altered Elimination Yes (1 pt) Score/Fall Risk Level 3 or more points = High Risk Oriented to surroundings, Maintained a safe environment, Educated pt \T\ family on fall prevention, incl call for assistance when getting out of bed, Hourly rounding (assess needs \T\ fall precautionary measures) done. Abuse screen: Denies threats or abuse. Nutritional screening: No deficits noted. Tuberculosis screening: No symptoms or risk factors identified. Assessment: 21:14 Reassessment: No changes from previously documented assessment. Patient and/or family vc1 updated on plan of care and expected duration. Pain level reassessed. 22:22 Reassessment: No changes from previously documented assessment. Patient and/or family vc1 updated on plan of care and expected duration. Pain level reassessed. Vital Signs: 19:46 BP 105 / 83; Pulse 126; Resp 14; Temp 100.1(A); Pulse Ox 100% on R/A; vc1 20:00 BP 103 / 78; Pulse 118; Resp 14; Pulse Ox 98% on BiPAP; FiO2 40 %; vc1 20:37 Weight 53.98 kg; vc1 21:00 BP 92 / 75; Pulse 129; Resp 14; Pulse Ox 93% ; vc1 22:19 BP 96 / 80; Pulse 84; Resp 19; Temp 96.9; Pulse Ox 99% on BiPAP; FiO2 40 %; vc1 23:00 BP 122 / 91; Pulse 85; Resp 15; Pulse Ox 100% ; vc1 16 00:00 BP 102 / 75; Pulse 77; Resp 20; Pulse Ox 99% ; vc1 01:00 BP 118 / 78; Pulse 77; Resp 17; Pulse Ox 99% ; vc1 02:35 BP 141 / 98; Pulse 71; Resp 17; Pulse Ox 100% ; vc1 ED Course: 02/15 19:30 Patient arrived in ED. [id number] 19:30 One-on-one care X 30 minutes. vc1 19:32 Patient has correct armband on for positive identification. Bed in low position. Call vc1 light in reach. hall monitor on. Pulse ox on. NIBP on. 19:32 Provided Education on: Plan of care. vc1 19:32 Arm band placed on left wrist. vc1 19:40 Rivera Spann PA is PHCP. cp 19:40 Dm Reyes DO is Attending Physician. cp 19:46 Monica Welch, CORIN is Primary Nurse. vc1 19:56 Triage completed. vc1 20:00 One-on-one care X 30 minutes. vc1 20:54 Chest Single View XRAY In Process Unspecified. EDMS 21:51 CT Chest Abdomen Pelvis W/O Contrast In Process Unspecified. EDMS 21:51 CT Head Brain wo Cont In Process Unspecified. EDMS 23:12 Avelino Ying, RN is Hospitalizing Provider. cp 02/16 00:27 initiated transfer with Oriana Higgins kmf 01:45 pt was accepted to [facility] \T\ 0121. Accepting Mahamed Livingston \T\0121. Admin km f Oriana Villalobos \T\0131. Number for nurse to nurse report [phone]. Pt will go to ICU 202. [facility] to transfer pt once nurse to nurse is complete. 02:21 [facility] eta 20 mins. kmf 02:56 asked for another update on transfer ETA. [facility] short be here shortly. kmf 04:23 No provider procedures requiring assistance completed. Patient transferred, IV remains vc1 in place. Administered Medications: 02/15 21:11 Drug: Acetaminophen NM Suppository 650 mg NM once Route: NM; vc1 23:13 Follow up: Response: No adverse reaction; Marked relief of symptoms; Temperature is vc1 decreased 21:11 Drug: NS 0.9% IV (30 ml/kg) 30 ml/kg IV at bolus once; Sepsis Protocol; to be given as vc1 a bolus over 90 minutes Route: IV; Rate: bolus; Site: left antecubital; 22:45 Follow up: IV Status: Completed infusion; IV Intake: 1500ml vc1 22:16 Drug: MethylPrednisoLONE IVP 80 mg IVP once Route: IVP; Site: left antecubital; vc1 23:11 Follow up: Response: No adverse reaction vc1 22:19 Drug: Rocephin IV 1 grams IV at calculated rate once; Given slow IV push per pharmacy vc1 instructions Route: IV; Rate: calculated rate; Site: left antecubital; 22:33 Follow up: IV Status: Completed infusion; IV Intake: 10ml vc1 22:19 Drug: Zithromax IVPB 500 mg IVPB once over 1 hrs; mix in 250 mL NS Route: IVPB; Infused vc1 Over: 1 hrs; Site: left forearm; 23:19 Follow up: IV Status: Completed infusion; IV Intake: 250ml vc1 22:19 Drug: Levalbuterol Inhalation 1.25 mg Inhalation once Route: Inhalation; vc1 Medication: 21:57 VIS not applicable for this client. vc1 Intake: 22:33 IV: 10ml; Total: 10ml. vc1 22:45 IV: 1500ml; Total: 1510ml. vc1 23:19 IV: 250ml; Total: 1760ml. vc1 Outcome: 23:13 Decision to Hospitalize by Provider. cp 02/16 00:38 ER care complete, transfer ordered by . cp 04:23 Transferred by ground EMS [facility] Transfer form vc1 completed. X-rays sent w/ patient. 04:23 Condition: stable 04:25 Patient left the ED. vc1 Signatures: Dispatcher [employer] EDMS Rivera Spann PA PA cp Jeffries, Jennifer jj6 Monica Welch RN RN vc1 Martina Ibanez [facility]
[2025-02-16 00:59] LABS: Base Excess, VBG -0.3 mmol/L (-2.0-3.0); HCO3, Venous Blood Gas 25.8 mmol/L (21.0-29.0); O2 Saturation, VBG 93.6 % (40.0-70.0); PCO2, Venous Blood Gas 50 mmHg (41-51); PH, Venous Blood Gas 7.32 (7.32-7.42); PO2, Venous Blood Gas 75 mmHg (25-40)
[2025-02-16 10:11] VITALS: TEMP 96.9
[2025-02-16 10:17] VITALS: BP 141/98; O2SAT 100
== END 2025-02-16 04:25 | disposition short-term general hospital (02) ==
LOC: ER 19:27
DX: J96.01 Acute respiratory failure with hypoxia (principal); U07.1 COVID-19; N39.0 Urinary tract infection, site not specified; S37.009A Unspecified injury of unspecified kidney, initial encounter
CPT/HCPCS: 93005; 87040 ×2; 87088; 85025; 81001; 87086; 36415; 87205; 85610; 83605; 85730; 84484; 80053; 83880; 70450; 71250; 74176; 71045; 99285; 82803; 82805; 87428; 36600; 94660; J0456; J7614; J7050; J7040; J7030; J2919; J0696; 87077; 87186